=== PATIENT | male | born 1960 | race Caucasian/White ===

== ENCOUNTER 2024-04-25 14:34 | Emergency (ER) | payer OTHER, SELFPAY ==
[2024-04-25 14:40] VITALS: BP 124/74
[2024-04-25 15:06] LABS: Hematocrit 30.9 % (39.0-52.0); Mean Corp Hgb Conc. 35.6 g/dL (33.0-37.0); Mean Corpuscular Hgb 34.7 pg (27.0-31.0); Mean Corpuscular Volume 97.5 fL (80.0-94.0); Mean Platelet Volume 10.4 fL (7.4-10.4); Platelet Count 88 10^3/uL (130-400); Red Blood Cell Count 3.17 10^6/uL (4.70-6.10); Red Cell Dist. Width 13.6 % (11.5-14.5); White Blood Cell Count 16.9 10^3/uL (4.8-10.8)
[2024-04-25 15:15] LABS: Lymphocytes 36 % (20-51); Monocytes 14 % (2-9); Myelocytes 2 % (-); Segmented Neutrophils 48 % (42-75)
[2024-04-25 15:16] LABS: Metamyelocytes 4 % (-); Normal RBC Morphology Yes; Platelets Checked Yes; Total Cells Counted 100
[2024-04-25 15:23] LABS: ALT (SGPT) 16 U/L (0-50); AST (SGOT) 27 U/L (17-59); Albumin 4.2 g/dl (3.5-5.0); Alkaline Phosphatase 74 U/L (38-126); Blood Urea Nitrogen 19 mg/dl (9-20); Calcium 9.8 mg/dl (8.4-10.2); Carbon Dioxide 25 mmol/L (22-30); Chloride 105 mmol/L (98-107); Glucose 94 mg/dl (70-99); Potassium 3.5 mmol/L (3.5-5.1); Sodium 139 mmol/L (135-145); Total Bilirubin 0.3 mg/dl (0.2-1.3); Total Protein 7.1 g/dl (6.3-8.2); eGFR 56.83
[2024-04-25 15:27] LABS: Troponin I < 0.012 ng/ml
--- NOTE | 2024-04-25 16:32 | ED.GENMED ---
Addendum entered and electronically signed by Govind Pool PA-C 04/28/24 07:02:
Urine culture shows greater than 100,000 colony-forming units of E. coli. This was pansensitive on sensitivities. Patient was started on amoxicillin and Zithromax for pneumonia as well. No change necessary
Original Note:
History of Present Illness
General
Chief Complaint: Back Pain
Time Seen by Provider: 04/25/24 16:32
History of Present Illness
History of Present Illness:
HPI: The patient presents with left flank pain over the last few days. This is associated with pain that worsens with certain position changes. Last night he could barely move his left upper extremity due to the pain. He reports some vague
shortness of breath primarily related to pain with movement as opposed to true dyspnea with exertion. He seemed like his symptoms worsened after he was pulling his dog yesterday that was scared from the fireworks
EXAM:
GENERAL: Well appearing in very mild distress
HEENT: Moist oral mucosa
CARDIOVASCULAR: No murmurs, normal heart rate, regular rhythm, No chest wall tenderness
PULMONARY: No respiratory distress, breath sounds are clear and equal
ABDOMEN: Soft with no peritoneal signs, no tenderness, minimal if any left CVA tenderness
NEUROLOGIC: Excellent strength all extremities, no coordination deficits
PSYCHIATRIC: Appropriate mental status, normal insight and judgement
EXTREMITIES: Nontender, no edema, moves all extremities equally
SKIN: No rash, no lesions
TIME OF INITIAL ENCOUNTER: 4:45 PM
NUMBER AND COMPLEXITY OF PROBLEMS ADDRESSED AT THE ENCOUNTER
� Chronic conditions affecting care: Has had left upper extremity surgery in the past
� Acute Exacerbation and/or Progression of Chronic Illness: This is an acute problem
� Differential Diagnosis includes: Musculoskeletal flank pain, ureteral stone, pyelonephritis, UTI
AMOUNT AND/OR COMPLEXITY OF DATA TO BE REVIEWED AND ANALYZED
� I performed an independent evaluation of and my interpretation is:
EKG: Sinus 79, normal axis, nonspecific ST abnormality
CT: Small left pleural effusion noted on CT
X-rays: Chest x-ray shows no acute abnormality
Laboratory Studies: White count 16.9, hemoglobin 11.0, creatinine 1.4 with GFR 57, troponin less than 0.012,
Other:
� Review of other/old records: I reviewed colonoscopy report which showed internal hemorrhoids and diverticular disease from 2017
� Clinical information was obtained by an independent historian: at bedside
� Prescriptions/Medications Considered but not given:
� Further testing considered but not performed: Considered CT chest however I did personally viewed the CT of the abdomen pelvis and it does appear that a significant portion of the area of concern was seen on the abdomen pelvis
RISK OF COMPLICATIONS AND/OR MORBIDITY OR MORTALITY OF PATIENT MANAGEMENT
� Social determinants of health affecting care: Lives at home
� Discussion with other providers:
� Escalation of care including admission/observation vs risk of discharge considered: Leukocytosis is noted. Will add urinalysis. Given the location of the pain will also see of the abdomen pelvis. CT of the abdomen pelvis
shows small pleural effusion along with small consolidation. He does have associated cough�will start treatment for pneumonia. Although patient is a smoker and is 63 years old with leukocytosis, he is very well-appearing and primarily is more
concerned of the pain. His sats are relatively unremarkable on room air. Encouraged to return here if worse.
Phy Exam
Physical Exam
Physical Exam:
See HPI
Course
Orders/Labs/Results
Orders:
Orders
04/25/24 14:35
EKG [Electrocardiogram (*1)] Urgent
Reason for Study: Chest Pain
EKG- Treatment ONCE
04/25/24 14:46
CXR2 [CR Chest - 2 Views ] Urgent
Comment:
Reason For Exam: SOB
04/25/24 14:52
Complete Blood Count/With Diff Urgent
Comprehensive Metabolic Panel Urgent
Manual Differential Urgent
Troponin I Urgent
04/25/24 16:50
CT Abd/pel Without Iv Or Oral Urgent
Comment:
Reason For Exam: L flank pain
04/25/24 17:23
Acetaminophen [Tylenol] 1,000 mg .ROUTE .STK-MED ONE
04/25/24 17:52
Acetaminophen [Tylenol] 1,000 mg PO NOW STA
04/25/24 18:42
Urinalysis Reflex To Culture Urgent
Date Specimen was Collected: 04/25/24
Time Specimen was Collected: 18:41
Urine Microscopic Reflex Cult Urgent
Urine Culture Urgent
ABBY Source: U
Specimen Description:
Date Specimen was Collected: 04/25/24
Time Specimen was Collected: 18:41
04/25/24 19:54
Amoxicillin [Amoxil] 1,000 mg PO NOW STA
Azithromycin [Zithromax] 500 mg PO NOW STA
Abnormal Lab Results
04/25/24 04/25/24
14:52 18:42
WBC 16.9 H 10^3/uL
(4.8-10.8)
RBC 3.17 L 10^6/uL
(4.70-6.10)
Hgb 11.0 L g/dL
(13.0-18.0)
Hct 30.9 L %
(39.0-52.0)
MCV 97.5 H fL
(80.0-94.0)
MCH 34.7 H pg
(27.0-31.0)
Plt Count 88 L 10^3/uL
(130-400)
Monocytes (Manual) 14 H %
(2-9)
Creatinine 1.4 H mg/dL
(0.7-1.3)
Ur Occult Blood Reflex Trace A
(Negative)
Urine Bilirubin 1+ A
(Negative)
Leukocyte Esterase Rfl 1+ A
(Negative)
Urine Bacteria (Reflex) Few A
(Negative)
04/25/24 14:52
04/25/24 14:52
Vital Signs
Initial and Last Documented VS:
Initial Vital Signs
Temp Pulse Resp BP Pulse Ox
98 F 82 16 124/74 96
04/25/24 14:40 04/25/24 14:40 04/25/24 14:40 04/25/24 14:40 04/25/24 14:40
Last Documented Vital Signs
Temp Pulse Resp BP Pulse Ox
98 F 84 18 133/70 95
04/25/24 14:40 04/25/24 18:43 04/25/24 18:43 04/25/24 18:43 04/25/24 18:43
*Critical Care Note
Total Time (30-74mins, 75-104mins- exclusive of procedures): Not Applicable
ED Attending Note
-
Portions of this chart may have been created with voice recognition software.� Occasional wrong word or��sound alike� substitutions may have occurred due to the inherent limitations of voice recognition software.
Discharge Plan
Departure
Patient Disposition: Home (Routine Discharge)
Date of Disposition: 04/25/24
Time of Disposition: 19:47
Patient with high blood pressure during this ER visit?: Yes
Discharge Problem:
Pneumonia
Prescriptions:
New
tramadol 50 mg tablet
50 mg PO Q8H PRN (Reason: Pain) Qty: 14 0RF
amoxicillin 500 mg capsule
1,000 mg PO TID 7 Days Qty: 42 0RF
azithromycin [Zithromax] 250 mg tablet
250 mg PO DAILY Qty: 4 0RF
Referrals:
Marcus Lim MD [Active] - Follow up in 1 week
Shannan Velasquez PA-C [Family Provider] -
Activity Restrictions/Additional Instructions:
Your white blood cell count is elevated 16.9 but your temperature here is normal. Your x-ray did not show signs of pneumonia however the CAT scan of the abdomen pelvis did include the lower portion of the lung and it does show a small pleural
effusion along with sign of pneumonia on the left side. I have placed you on antibiotics. Follow with your primary care doctor. I have also given the contact information for a local county home demonstration agent esophageal to follow-up with if needed.
Interventions
Interventions:
*Risk Screen - Suicide Last Done: 04/25/24 14:40
*General Assessment Last Done: 04/25/24 14:40
*Neglect/Abuse Screening Last Done: 04/25/24 14:40
ED-Musculoskeletal Assessment Last Done: 04/25/24 18:15
Discharge Date and Time
Print Language: ALBANIAN
[2024-04-25 16:54] VITALS: BMI 26.2
[2024-04-25 16:57] VITALS: BP 139/81
[2024-04-25] MEDS: TYLENOL 1000 MG PO (17:52)
[2024-04-25 18:43] VITALS: BP 133/70
[2024-04-25 18:49] LABS: Urine Albumin Trace (Neg - Trace); Urine Bilirubin 1+ (Negative); Urine Character Slightly Cloudy (Clear); Urine Color Yellow; Urine Glucose Negative (Negative); Urine Ketone Negative (Negative); Urine Leukocyte 1+ (Negative); Urine Nitrite Negative (Negative); Urine Occult Blood Trace (Negative); Urine Urobilinogen Negative (Neg - 1+)
[2024-04-25 18:56] LABS: Urine Red Blood Cell 0-2 /HPF (0-2)
[2024-04-25 18:57] LABS: Urine Bacteria Few (Negative)
[2024-04-25] MEDS: AMOXIL 1000 MG PO (20:00)
[2024-04-25] MEDS: ZITHROMAX 500 MG PO (20:01)
== END 2024-04-25 20:03 | disposition home or self-care (01) ==
LOC: EMR 14:34
PROVIDERS: Emergency Medicine; EMERGENCY PHYSICIAN Emergency Medicine; FAMILY PHYSICIAN Physician Assistant Medical
DX: J18.9 Pneumonia, unspecified organism (principal); R03.0 Elevated blood-pressure reading, without diagnosis of hypertension; F17.200 Nicotine dependence, unspecified, uncomplicated
CPT/HCPCS: 99285; 71046; 74176; 80053; 81003; 81015; 84484; 85025; 87077; 87086; 87186; 93005

== ENCOUNTER 2024-04-28 23:36 | Inpatient (IN) | payer OTHER, SELFPAY ==
[2024-04-28 21:40] VITALS: BP 130/70; BMI 25.5
--- NOTE | 2024-04-28 22:05 | ED.GENMED ---
History of Present Illness
General
Chief Complaint: Breathing Problem
Source: patient and spouse
Exam Limitations: none
Time Seen by Provider: 04/28/24 21:56
Nursing documentation reviewed up to this point in time: agreed with
History of Present Illness
History of Present Illness:
Pleasant 63-year-old male who presents to the emergency department with increased breathing difficulty, chest pain, and shortness of breath. Was seen in the emergency department Sunday. Diagnosed with pneumonia. Patient states that after going
home and started his antibiotics he did not seem to improve. Today he felt worse. 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 Patient is a smoker smokes approximate 1 pack/day sometimes more, sometimes
less, according to . Patient was also diagnosed with a UTI. Started on amoxicillin and Zithromax.
Vital signs are stable. Patient not hypoxic
Nursing note reviewed. I agree with nursing documentation up to this point in time.
Home Meds and allergies reviewed.
NUMBER AND COMPLEXITY OF PROBLEMS ADDRESSED AT THE ENCOUNTER
� Chronic conditions affecting care: Tobacco abuse
� Acute Exacerbation and/or Progression of Chronic Illness: Exacerbation of pneumonia symptoms
� Differential Diagnosis includes: Pneumonia, musculoskeletal pain, exacerbation or UTI.
AMOUNT AND/OR COMPLEXITY OF DATA TO BE REVIEWED AND ANALYZED
I performed an independent evaluation of the following and my interpretation is:
EKG:
CT:
X-rays:
Ultrasound:
Laboratory Studies:
Other: Room air pulse ox 90%
Review of other/old records:
Clinical information was obtained by an independent historian:
Prescriptions/Medications Considered but not given:
Further testing considered but not performed:
RISK OF COMPLICATIONS AND/OR MORBIDITY OR MORTALITY OF PATIENT MANAGEMENT
Social determinants of health affecting care: Good Social Support, present at the bedside.
Discussion with other providers:
Escalation of care including admission/observation vs risk of discharge considered: Patient was unable to tolerate outpatient therapy. He bounced back with hypoxia. He is 63, lifelong smoker, and unable to tolerate the back
pain associated with breathing. Patient to be admitted to the hospitalist service.
CRITICAL CARE NOTE:
Total Time (exclusive of procedures):
Update:
Phy Exam
Physical Exam
Physical Exam:
Physical Exam
Vital signs and allergy list reviewed and agreed with.
GENERAL: Alert , in moderate apparent distress on 2 L
EYE: pupils equal, EOMI, anicteric
NECK: Supple, no significant adenopathy. No masses. Trachea midline
ENT: Oropharynx is clear, mmm.
CARDIAC: Regular rate and rhythm . No M/R/G
LUNGS: Diminished breath sounds bilaterally, mild to moderate acute respiratory distress, generalized wheezing
ABDOMEN: Soft, without focal tenderness, no r/g, Normal BSx4q
NEUROLOGICAL: Alert and oriented, no focal neuro deficits
SKIN: Warm and dry, skin intact. As she had
MUSCULOSKELETAL: No edema, well perfused. Moves all 4 extremities
PSYCH: Normal and appropriate interaction.
Scores
Heart Failure Risk
Heart Failure Risk Score: Not Applicable
Course
Orders/Labs/Results
Orders:
Orders
04/28/24 21:44
Electrocardiogram (*1) Urgent
Reason for Study: Shortness of Breath
EKG- Treatment ONCE
04/28/24 22:04
Cardiac Monitoring- Treatment ONCE
Arterial Blood Gas Urgent
%Oxygen/Room Air: 2 l
04/28/24 22:05
CR Chest - 2 Views Urgent
Comment:
Reason For Exam: dyspnea
04/28/24 22:28
Complete Blood Count/With Diff Urgent
Comprehensive Metabolic Panel Urgent
Ferritin Urgent
Comment: ADDED
Folate Urgent
Comment: ADDED
Iron Urgent
Comment: ADDED
Lactic Acid Q4H
Comment: CANCEL 2nd LACTIC ACID IF 1st LACTIC ACID IS LESS THAN 2
Manual Differential Urgent
NT-proBNP Urgent
Procalcitonin Urgent
PCT Algorithmm Indication: Respiratory
Prothrombin Time Urgent
Total Iron Binding Urgent
Comment: ADDED
Troponin I Urgent
Vitamin B12 Urgent
Comment: ADDED
Blood Culture Urgent
ABBY Source: Blood/Venous
Specimen Description:
04/28/24 22:58
Piperacillin/Tazo 4.5 Gram [Zosyn] 4.5 gram in 100 ml IV NOW
04/28/24 23:00
Flush (0.9% Sodium Chloride) [Flush (Nss)] See Dose Instructions IV PER PROTOCOL
04/28/24 23:13
HYDROmorphone [Dilaudid] 0.5 mg IV NOW STA
Ondansetron Injectable [Zofran] 4 mg IV NOW STA
04/28/24 23:19
Admit/Transfer Patient As Directed
Co-Sign Provider:
Level of Care: Inpatient admission
Assign to:: Telemetry
Physician / Group: Essie
Diagnosis: Pneumonia; Hypoxia
Reason for Telemetry: Arrhythmia
Date to Stop Telemetry: 05/01/24
Time to Stop Telemetry: 11:00
Reason for Hospitalization: IV abx
Expected length of stay greater than two midnights?: Yes
ELOS- Estimated Length of Stay in days: 3
I certify the patient meets the requirements for IP care: Yes
04/28/24 23:20
Code Status As Directed
Resuscitation Status: Full Code
04/28/24 23:24
COVID-19 Antigen Urgent
Source: Nasal Swab
Potassium Chloride [KCl] 40 meq PO NOW STA
04/29/24 03:43
Acetaminophen [Tylenol] 650 mg PO Q4HPRN PRN
Ipratropium/Albuterol Sulfate [Duoneb] 3 ml INH R Q4HPRN PRN
Oxycodone [Roxicodone] 5 mg PO Q4HPRN PRN
04/29/24 03:43
Activity As Directed
Activity Level: Out of Bed-Early Mobility
Intake/ Output As Directed
Frequency: Per unit guidelines
Pneumatic Compression Sleeves As Directed
Type: Knee high
Vital Signs As Directed
Frequency: Per unit guidelines
Weight As Directed
Frequency: Once
Comment: on admission
O2 Therapy [RESP] Routine
Titrate/Wean O2 to maintain O2 sat greater than (%): 90
Special Instructions: Wean as tolerated
Pulse Ox/cont/shift [RESP] Routine
Quantity: 1
Smoking Cessation Counseling [RESP] Routine
DX Deep Vein Thrombosis Video Routine
04/29/24 04:00
CefTRIAXone [Rocephin] 1,000 mg IV HS
04/29/24 06:00
Basic Metabolic Panel IN AM
Complete Blood Count/No Diff IN AM
Magnesium IN AM
04/29/24 08:00
Doxycycline [Vibramycin] 100 mg PO BID
Guaifenesin [Mucinex] 600 mg PO Q12
Ipratropium/Albuterol Sulfate [Duoneb] 3 ml INH R QID
Nicotine [Nicoderm Transdermal] 14 mg TRANSDERM DAILY
04/29/24 Dinner
Regular
At Your Request: Limited Participation
05/01/24 11:00
DC Protocol for Telemetry ONCE
Abnormal Lab Results
04/28/24
22:28
WBC 29.1 H 10^3/uL
(4.8-10.8)
RBC 3.17 L 10^6/uL
(4.70-6.10)
Hgb 10.8 L g/dL
(13.0-18.0)
Hct 30.9 L %
(39.0-52.0)
MCV 97.5 H fL
(80.0-94.0)
MCH 34.1 H pg
(27.0-31.0)
Plt Count 84 L 10^3/uL
(130-400)
MPV 11.6 H fL
(7.4-10.4)
Potassium 3.1 L mmol/L
(3.5-5.1)
Creatinine 1.6 H mg/dL
(0.7-1.3)
Glucose 116 H mg/dl
(70-99)
Lactic Acid 0.6 L mmol/L
(0.7-2.0)
TIBC 257 L ug/dl
(261-462)
Ferritin 817.0 H ng/ml
(17.9-464.0)
04/28/24 22:28
04/28/24 22:28
Vital Signs
Initial and Last Documented VS:
Initial Vital Signs
Temp Pulse Resp BP Pulse Ox
98 F 78 26 130/70 92
04/28/24 21:40 04/28/24 21:40 04/28/24 21:40 04/28/24 21:40 04/28/24 21:40
Last Documented Vital Signs
Temp Pulse Resp BP Pulse Ox
98.2 F 66 13 116/65 92
04/29/24 02:35 04/29/24 05:15 04/29/24 05:15 04/29/24 05:00 04/29/24 05:15
*Critical Care Note
Total Time (30-74mins, 75-104mins- exclusive of procedures): Not Applicable
ED Attending Note
-
Portions of this chart may have been created with voice recognition software.� Occasional wrong word or��sound alike� substitutions may have occurred due to the inherent limitations of voice recognition software.
Discharge Plan
Departure
Patient Disposition: Admit
Date of Disposition: 04/28/24
Time of Disposition: 23:14
Admit to: Telemetry
Presentation/result/management discussed w/ accepting MD/DO: Hospitalist
Condition: Good
Discharge Problem:
Pneumonia
Interventions
Interventions:
*Risk Screen - Suicide Last Done: 04/28/24 21:40
*Neglect/Abuse Screening Last Done: 04/28/24 21:40
ED- Fall Risk Assessment Last Done: 04/29/24 00:57
ED- Cardiac Assessment Last Done: 04/29/24 00:57
ED- Pulmonary Assessment Last Done: 04/29/24 00:57
[2024-04-28 22:43] LABS: Hematocrit 30.9 % (39.0-52.0); Hemoglobin 10.8 g/dL (13.0-18.0); Mean Corpuscular Hgb 34.1 pg (27.0-31.0); Mean Corpuscular Volume 97.5 fL (80.0-94.0); Mean Platelet Volume 11.6 fL (7.4-10.4); Platelet Count 84 10^3/uL (130-400); Red Blood Cell Count 3.17 10^6/uL (4.70-6.10); Red Cell Dist. Width 13.9 % (11.5-14.5); White Blood Cell Count 29.1 10^3/uL (4.8-10.8)
[2024-04-28 22:53] LABS: Lactic Acid 0.6 mmol/L (0.7-2.0)
[2024-04-28 22:56] LABS: ALT (SGPT) 27 U/L (0-50); AST (SGOT) 40 U/L (17-59); Albumin 4.1 g/dl (3.5-5.0); Alkaline Phosphatase 120 U/L (38-126); Blood Urea Nitrogen 20 mg/dl (9-20); Carbon Dioxide 27 mmol/L (22-30); Chloride 101 mmol/L (98-107); Glucose 116 mg/dl (70-99); INR 1.12; PT 14.2 Sec (11.4-14.6); Potassium 3.1 mmol/L (3.5-5.1); Sodium 135 mmol/L (135-145); Total Bilirubin 0.5 mg/dl (0.2-1.3); Total Protein 7.1 g/dl (6.3-8.2); eGFR 48.41
[2024-04-28 23:05] LABS: NT-proBNP 326 pg/ml; Troponin I < 0.012 ng/ml
[2024-04-28 23:11] LABS: Procalcitonin < 0.05 ng/ml (0.0-0.25)
[2024-04-28] MEDS: ZOFRAN 4 MG IV (23:18)
[2024-04-28] MEDS: DILAUDID 0.5 MG IV (23:18)
[2024-04-28] MEDS: ZOSYN 100 IV (23:18)
[2024-04-28 23:22] VITALS: BMI 25.5
--- NOTE | 2024-04-28 23:26 | HPS.HSE ---
Family Physician
-
Family Physician: Shannan Velasquez
Chief Complaint
-
Chest Pain and Shortness of Breath
History of Present Illness
Patient is a 63 y/o male without significant past medical history who presents with chest pain and shortness of breath. Patient was seen here at the [facility] Emergency Department on April 25 at which time he was found to have pneumonia.
He was started on amoxicillin and zithromax, and discharged home. Patient presents today due to worsening pain and shortness of breath. He reports pain is worse when he takes a deep breath causing him to feel short of breath. He reports several
episodes of sweats over the weekend, but denies recorded fevers. He denies any chronic lung condition, but does smoke 1 pack of cigarettes per day. He reports he has not seen a physician in about 10 years.
Medical History
Past Medical History
Past Medical History: Reports None
Past Surgical History: Reports Other
Additional Past Surgical History:
Left Wrist Surgery
Social History
Tobacco: Smoker (1 ppd)
Alcohol: None
Family History
Family History: Not pertinent
Allergies / Home Medications
Allergies reflects when Allergies were last updated in [facility].
Home Medications with original date entered in [facility]
Allergy/Medication List:
Allergies
Allergy/AdvReac Type Severity Reaction Status Date / Time
oxycodone HCl [From Percodan] Allergy nausea, Verified 04/25/24 14:40
vomitung
Home Medications
amoxicillin 500 mg capsule 1,000 mg (2 x 500 mg) PO TID 7 days #42 caps 04/25/24
azithromycin 250 mg tablet (Zithromax) 250 mg PO DAILY #4 tabs 04/25/24
tramadol 50 mg tablet 50 mg PO Q8H PRN moderate pain 04/28/24
Review of Systems
-
A 12 point ROS was completed and negative except as noted: Yes
Constitutional: Denies Fever
Respiratory: Reports See HPI
Cardiac: Denies Palpitations
Abdomen/GI: Reports Nausea; Denies Abdominal Pain
Physical Exam
Vital Signs
Vital Signs
Temp Pulse Resp BP Pulse Ox
98 F 78 26 130/70 92
04/28/24 21:40 04/28/24 21:40 04/28/24 21:40 04/28/24 21:40 04/28/24 21:40
Physical Exam
General: Comfortable and Conversant
HEENT: Anicteric, Moist mucous membranes and Oxygen (Nasal Cannula)
Respiratory: Rhonchi (Bilateral Lower Lung Goel) and Non Labored Respirations
Cardiac: S1/S2 and Regular Rhythm
GI: Soft and Non Tender
Rectal: Deferred by Provider
Musculoskeletal: No Clubbing, No Cyanosis and No Edema
Skin: Warm and Dry
Neuro: Awake, Alert, Oriented and Nonfocal/grossly intact
Psych: Calm
Laboratory Results
-
04/28/24 22:28
04/28/24 22:28
Laboratory Results
PT 14.2 Sec (11.4-14.6) 04/28/24 22:28
INR 1.12 04/28/24 22:28
Lactic Acid 0.6 mmol/L (0.7-2.0) L 04/28/24 22:28
Total Bilirubin 0.5 mg/dl (0.2-1.3) 04/28/24 22:28
AST 40 U/L (17-59) 04/28/24 22:28
ALT 27 U/L (0-50) 04/28/24 22:28
Alkaline Phosphatase 120 U/L (38-126) 04/28/24 22:28
Troponin I < 0.012 ng/ml 04/28/24 22:28
Data Reviewed
-
Diagnostic Radiology: Other (Chest X-Ray Pending)
CT Scan: Report Reviewed by me
Lab Data: Labs Reviewed by me
Old Records: Reviewed
Impression/Plan
-
Acute Hypoxic Respiratory Insufficiency secondary to Pneumonia and possibly underlying COPD
-Continue supplemental oxygen
-Transition antibiotics to ceftriaxone and doxycycline
-Start Duoneb QID and PRN
-Check COVID and Blood Culture
-Await CXR
Hypokalemia
-Replace potassium
-Recheck potassium and magnesium level in AM
Elevated Creatinine, unknown baseline
-Continue to trend
Macrocytic Anemia
-Check vitamin b12 and folic acid level
Tobacco Use Disorder
-Continue nicotine patch
-Encourage smoking cessation
DVT proph: SCDs (Platelet count low on prior labs, and still pending at time of admission)
Code Status: Full Code
--- NOTE | 2024-04-28 23:26 | W.PN.UPDATE ---
Update Note
Progress Note Update
This is an addendum to the H&P written by WILL Arellano on 04/28/2024.
Patient seen and examined independently with PA.
63-year-old male past medical history of presenting with shortness of breath, chest pain. He was seen in the emergency room 3 days prior and diagnosed with pneumonia on CT abdomen pelvis as well as E. coli UTI although no urinary symptoms. He was
discharged on amoxicillin/Zithromax. He continues to have worsening left flank pain, chills, and cough.
Pleuritic chest pain secondary to left lower lobe pneumonia. Chest x-ray pending. Unclear why ABG being performed. Labs show elevated creatinine unclear if JULIO versus CKD. IV fluids, check blood culture. Check COVID. Ceftriaxone/doxycycline.
DuoNebs as needed.
[2024-04-28 23:28] VITALS: BP 123/64
[2024-04-29] VITALS (11 sets, daily range): BP systolic 106–139; BP diastolic 59–71; BMI 25.0
[2024-04-29 00:06] LABS: Pathologist Reviewed Yes
[2024-04-29] MEDS: KCL 40 MEQ PO (00:07)
[2024-04-29 00:14] LABS: B.E. 0.3 mmol/L; HCO3 25.4 mmol/L (21-28); O2 Saturation % 94.8 % (94-98); PCO2 42 mmHg (35-48); PO2 68 mmHg (83-108); pH 7.39 (7.35-7.45)
[2024-04-29 00:15] LABS: O2 Therapy 2L NC
[2024-04-29 00:36] LABS: COVID-19 Antigen Negative (Negative)
[2024-04-29 00:43] LABS: Iron 90 ug/dl (49-181)
[2024-04-29 00:52] LABS: Percent Saturation 35 % (20-50); Total Iron Binding Capacity 257 ug/dl (261-462)
[2024-04-29] MEDS: STERILE WATER FOR INJECTION 10 ML IV ×2 (04:24→21:00)
[2024-04-29] MEDS: ROCEPHIN 1000 MG IV ×2 (04:25→21:00)
[2024-04-29 05:01] LABS: Folate 7.4 ng/ml (2.76-20); Vitamin B12 288 pg/ml (239-931)
[2024-04-29 06:04] LABS: Hematocrit 29.9 % (39.0-52.0); Hemoglobin 10.3 g/dL (13.0-18.0); Mean Corp Hgb Conc. 34.4 g/dL (33.0-37.0); Mean Corpuscular Hgb 35.2 pg (27.0-31.0); Platelet Count 72 10^3/uL (130-400); Red Blood Cell Count 2.93 10^6/uL (4.70-6.10); Red Cell Dist. Width 13.9 % (11.5-14.5); White Blood Cell Count 23.4 10^3/uL (4.8-10.8)
[2024-04-29 06:22] LABS: Blood Urea Nitrogen 19 mg/dl (9-20); Calcium 8.6 mg/dl (8.4-10.2); Carbon Dioxide 28 mmol/L (22-30); Chloride 103 mmol/L (98-107); Estimated Creatinine Clearance 49 ml/min; Glucose 125 mg/dl (70-99); Potassium 3.6 mmol/L (3.5-5.1); Sodium 137 mmol/L (135-145); eGFR 52.31
[2024-04-29] MEDS: DUONEB 3 ML INH ×4 (08:34→20:11)
[2024-04-29] MEDS: NICODERM TRANSDERMAL 14 MG TRANSDERM (09:26)
[2024-04-29] MEDS: MUCINEX 600 MG PO ×2 (09:26→20:59)
[2024-04-29] MEDS: VIBRAMYCIN 100 MG PO ×2 (09:26→20:59)
[2024-04-29] MEDS: ROXICODONE 5 MG PO ×2 (09:31→13:32)
[2024-04-29] MEDS: ZOFRAN 4 MG IV ×2 (10:14→16:41)
--- NOTE | 2024-04-29 11:35 | W.PN.HOSP.TC ---
Today's Communication/Plan
-
See plan
Assessment / Plan
Assessment / Plan
Impression:
Presentation with mostly left-sided pleuritic/reproducible chest pain/back pain
Acute hypoxic respiratory insufficiency
Bilateral interstitial infiltrates with differential diagnosis community-acquired/atypical pneumonia, versus pneumonitis, versus vasculitis.
Leukocytosis
Thrombocytopenia.
? Acute anemia with macrocytosis
Acute kidney injury
Hypokalemia.
E. coli bacteriuria
Tobacco smoker
Plan:
Acute hypoxic respiratory insufficiency requiring oxygen supplementation up to 4 L nasal cannula
No evidence for distress.
Main complaint of reproducible chest and back pain. Minimal cough and expectoration. Afebrile.
Bilateral interstitial infiltrates on chest x-ray.
Differential diagnosis as above.
Elevated white count with negative procalcitonin level.
COVID-negative
He reports symptoms for over a week with worsening on April 24
On outpatient antibiotics including amoxicillin and Zithromax without significant improvement.
Continue ceftriaxone/doxycycline. Status post single dose of Zosyn while in ED.
Follow blood cultures
Check urine Legionella antigen.
Vasculitis serology.
Lower extremity Doppler
Consider CT scan of the chest preferably with IV contrast when renal function allows
Pulmonology evaluation
Continue oxygen supplementation
Follow CBC
Pleuritic pain control with Tylenol/oxycodone
Chest pain is positional and reproducible on exam.
Normal cardiac markers including BNP and troponin
ECG with no ischemia.
Given interstitial infiltrates, will check echocardiogram.
Acute kidney injury
Check urine sodium.
Bladder scan.
Repeat urinalysis.
Challenged with isotonic solution.
Avoid NSAIDs
Follow BMP
Hypokalemia. Potassium repleted.
Anemia with macrocytosis
? If acute
Will follow CBC
Check B12 and TSH
Thrombocytopenia? If related to acute illness.
Follow closely
Tobacco use disorder
Nicotine patch
Bacteriuria/E. coli per
Patient initially presented with back/flank pain.
Currently with no urinary symptoms.
CT scan of the abdomen pelvis with no urologic tract abnormalities.
DVT prophylaxis mechanical (thrombocytopenia avoiding heparin products)
Full code.
Anticipated Discharge: > 48 hours
Subjective/Interval History
-
Date of Service: April 29, 2024
Objective Data
-
Labs:
Laboratory Results
04/28/24 04/29/24 04/29/24
22:28 00:05 05:45
WBC 23.4 H
Hgb 10.3 L
Hct 29.9 L
Plt Count 84 L 72 L
HCO3 25.4
Sodium 137
Potassium 3.6
Chloride 103
Carbon Dioxide 28
BUN 19
Creatinine 1.5 H
Glucose 125 H
Calcium 8.6
Vital Signs:
Vital Signs
Temp Pulse Resp BP Pulse Ox
98.3 F 71 16 114/60 95
04/29/24 11:10 04/29/24 11:26 04/29/24 11:26 04/29/24 11:10 04/29/24 11:26
Physical Exam
-
General: Well Developed and No Apparent Distress
HEENT: Normocephalic, Atraumatic and Moist Mucous Membranes
Respiratory: Clear to Auscultation
Cardiac: Regular Rhythm and S1/S2; Negative Murmur, Rub or Gallop
GI: Soft, Nontender, Nondistended and Normal Bowel Sounds; Negative Organomegaly
Rectal: Deferred by Provider
Musculoskeletal: No Clubbing, No Cyanosis and No Edema
Skin: Negative Rash
Neuro: Nonfocal/Grossly Intact
--- NOTE | 2024-04-29 11:48 | CON.PUL ---
Consultation
Consultation Request
Date/Time Consultation Requested: 04/29/20241137
Date/Time Consultation Performed: 04/29/2024 - 1147
Requesting Provider: Dr. Nichols
Performing Provider: Dr. Ma
Reason for Consultation: Hypoxia
Medical History
-
Chief Complaint: CP + SOB
History of Present Illness:
63-year-old male active tobacco smoker of 1 PPD with a past medical history of hyperlipidemia and internal hemorrhoids who presents with chest pain, ultimately status, and vomiting. Patient recently here in the ER on 04/25 with left-sided flank pain
where he had leukocytosis of 16.9, elevated creatinine of 1.4, with clear CXR and abnormal urinalysis with +1 leukocyte esterase. Urine culture collected and CT A/P showed a left-sided pleural effusion with LLL consolidation, with no CT evidence
for hydronephrosis or nephro ureterolithiasis. The patient did have a SOB at that time with a cough as well. He was diagnosed with pneumonia and discharged with amoxicillin X 7 days + Z-Rajinder. Of note his UCx grew kennedy-sensitive E. coli 2 days
later. He now returns again with worsening SOB + CP. He had been taking his antibiotics and was initially improving. He then was unable to do his job and so came to the ER where he was saturating 92% on room air, BP 130/70, tachypneic initially
to 26 breaths/min, pulse rate 78 and he was afebrile to 98 �F. Leukocytosis has worsened now to 29, platelet count 84, he was hypokalemic to 3.1, creatinine 1.6, lactate 0.6, troponin negative X1, proBNP 326, procalcitonin <0.05, and blood culture
X1 was collected, and CXR was repeated with low lung volumes with small bilateral pleural effusions with diffusely increased interstitial opacities. He was given Zosyn in the ER plus pain medications with Dilaudid, and admitted to the hospitalist
service. He is now requiring up to 4 L/min nasal cannula. Pulmonary service now consulted given abnormal CXR as well as hypoxia.
When I saw the patient he was in bed in no acute distress. Currently on 4 L/min nasal cannula. He endorses right-sided chest pain that started today. Patient's , Kay, at bedside. He feels that the chest pain is worse when he takes of
breath. 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 He currently denies SOB at rest, headache, abdominal pain, lower extremity swelling, calf pain, fevers or chills.
PMHx: History of internal hemorrhoids, tobacco use disorder, mixed hyperlipidemia
PSHx: Left wrist tendon repair, right ring finger repair, vasectomy s/p reversal
Past Medical History
Past Medical History: Other (Above as per HPI)
Past Surgical History: Other (Above as per HPI)
Social History
Tobacco: Smoker (1PPD)
Alcohol: Occasional
Drug: None
Employment: Employed
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
Family History
Family History: CAD (Father: History of MS) and Cancer (Mother: Breast cancer; paternal grandmother + paternal aunt: Colon cancer)
Allergies / Home Medications
Allergies
Allergy/AdvReac Type Severity Reaction Status Date / Time
oxycodone HCl [From Percodan] Allergy nausea, Verified 04/25/24 14:40
vomitung
Home Medications
�Medication �Instructions �Recorded �Confirmed �Last Taken �Type
tramadol 50 mg tablet 50 mg PO Q8H PRN moderate pain 04/28/24 04/28/24 04/28/24 17:00 History
amoxicillin 500 mg capsule 1,000 mg PO TID Infection 04/29/24 04/28/24 04/28/24 History
azithromycin 250 mg tablet 250 mg PO DAILY Infection 04/29/24 04/28/24 04/28/24 History
(Zithromax)
Review of Systems
-
History Source: Patient
All other systems: Negative unless noted
Vitals / Labs / Diagnostic Testing
Vital Signs
Temp Pulse Resp BP Pulse Ox
98.3 F 71 16 114/60 95
04/29/24 11:10 04/29/24 11:26 04/29/24 11:26 04/29/24 11:10 04/29/24 11:26
Lab Data
04/29/24 05:45
04/29/24 05:45
Laboratory Results
04/28/24 04/29/24
22:28 00:05
PT 14.2
INR 1.12
pH 7.39
pCO2 42
pO2 68 L
HCO3 25.4
O2 Delivery Level 2l nc
Diagnostic Testing:
Physical Exam
-
HEENT: Normocephalic and Anicteric
Cardiovascular: S1/S2 and Peripheral Edema (Negative)
Respiratory: Wheeze (Negative), Rales (left base), Rhonchi (Negative), Non-Labored Respirations and Other (Diminished breath sounds at left base)
GI: Soft, Non Distended, Non Tender and Normal Bowel Sounds
Neurology: Awake, Alert and Tremors (Negative)
Skin: Warm and Dry
General: Comfortable and Fever (Negative)
Assessment
-
Assessment: 63-year-old male active tobacco smoker of 1 PPD with a past medical history of hyperlipidemia and internal hemorrhoids who presents with chest pain, ultimately status, and vomiting. Patient recently here in the ER on 04/25 with
left-sided flank pain where he had leukocytosis of 16.9, elevated creatinine of 1.4, with clear CXR and abnormal urinalysis with +1 leukocyte esterase. Urine culture collected and CT A/P showed a left-sided pleural effusion with LLL consolidation,
with no CT evidence for hydronephrosis or nephro ureterolithiasis. The patient did have a SOB at that time with a cough as well. He was diagnosed with pneumonia and discharged with amoxicillin X 7 days + Z-Rajinder. Of note his UCx grew kennedy-sensitive
E. coli 2 days later. He now returns again with worsening SOB + CP. He had been taking his antibiotics and was initially improving. He then was unable to do his job and so came to the ER where he was saturating 92% on room air, BP 130/70,
tachypneic initially to 26 breaths/min, pulse rate 78 and he was afebrile to 98 �F. Leukocytosis has worsened now to 29, platelet count 84, he was hypokalemic to 3.1, creatinine 1.6, lactate 0.6, troponin negative X1, proBNP 326, procalcitonin
<0.05, and blood culture X1 was collected, and CXR was repeated with low lung volumes with small bilateral pleural effusions with diffusely increased interstitial opacities. He was given Zosyn in the ER plus pain medications with Dilaudid, and
admitted to the hospitalist service. He is now requiring up to 4 L/min nasal cannula. Pulmonary service now consulted given abnormal CXR as well as hypoxia.
Chronic conditions [employer]: History of internal hemorrhoids, tobacco use disorder, mixed hyperlipidemia
Impression:
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
#Left-sided pleural effusion with adjacent air bronchograms concerning for LLL CAP with parapneumonic effusion; unable to rule out empyema vs complicated parapneumonic effusion
#Abnormal CXR on 04/28/2024 with coarsened bronchovascular markings
#Tobacco use disorder
#Thrombocytopenia - unknown baseline but in the setting of leukocytosis, this could be due to active infection with sepsis
#Positive urinalysis with kennedy�sensitive E. coli seen on UCX from 04/25/2024 - suspicious for UTI although patient is asymptomatic
Plan:
- Regarding the interstitial markings from CXR on 04/28/2024, this is likely due to hypoventilation and not due to any pre-existing ILD. This is based on the fact that he had a normal CXR just 3 days prior, with no evidence of reticular opacities,
honeycombing or any other signs of ILD in the bases of the lungs on CT A/P from 04/25/2024
- I do not feel this patient needs a CTD workup at this time however given it was already drawn this will be followed up
- Leukocytosis up to 29.1 worries me, and a negative procalcitonin does not rule out a contained infection like a complicated parapneumonic effusion versus empyema
- Check Left chest US to assess pleural space; if there are septations then this collection would need a chest tube. If pleural space is large enough for thoracentesis then I would at least recommend a diagnostic Thora and sent for fluid glucose,
LDH, protein, albumin, cell count differential, bacterial cultures, fungus culture, AFB and cytology
- If effusion is small then continue antibiotics and we can always recheck CXR versus chest ultrasound in 48 hours to reassess persistence versus enlargement of left-sided pleural effusion
- Continue with antibiotics with ceftriaxone + Doxy; would not stop antibiotics until we adequately evaluate left-sided pleural space; otherwise would give a minimum of 7-10 days at this time
- Follow-up blood cultures, check sputum culture (if patient can produce a decent sample)
- Maintain SpO2 >90-94% with supplemental O2 as needed
- Incentive spirometer encouraged
- prn nebulized bronchodilators and continue DuoNebs QID
- Given his risk factor for DVT/PE, I will check a lower extremity duplex; unfortunately due to patient's elevated creatinine with suspected JULIO, hold off on CTA chest unless patient's oxygen requirements worsen or if patient's chest pain progresses
- Continue with IVF and trend sCr and UOP
- pain control
- Mucolytics with mucinex; can also use flutter valve
- Strongly encouraged nicotine cessation
- Continue nicotine patch
- Recommend outpatient PFTs
- He qualifies for lung cancer screening via LDCT chest which can be discussed with him as an outpatient
- Replete electrolytes with K>4, Mg>2
- Maintain euglycemia with goal BG >100 and <180
- DVT ppx
Pulmonary service will continue to follow along.
Total time spent today was 55 minutes for this encounter. Time includes reviewing laboratory test/imaging results, reviewing pertinent medical records, obtaining and reviewing medical history, performing an appropriate exam, ordering medications,
tests and procedures. Time also includes documentation of this encounter, coordinating patient care and communicating with other healthcare professionals. Total time does not include separately billed tests performed on this date of service.
Data:
CXR 04-28-2024: Diffuse increased interstitial opacity probably related to interstitial edema. Bilateral very small pleural effusions with adjacent atelectatic changes
CT Abd/Pelvis w/o contrast 04-25-2024:
1. Small left pleural effusion with an adjacent left lower lobe opacity that may represent atelectasis or pneumonia.
2. Cholelithiasis.
3. Colonic diverticulosis.
4. Mild splenomegaly.
5. No CT evidence for hydronephrosis or nephroureterolithiasis.
[2024-04-29] MEDS: NSS 1000 IV ×2 (12:57→21:01)
--- NOTE | 2024-04-29 13:16 | CM ---
Patient seen bedside, initial assessment completed. Patient resides with his in a two story home, three steps to enter. Patient denies DME, VN, or SNF history. Patient currently on O2, is not on home O2. Patient confirms PCP Dr. Velasquez,
pharmacy [facility], confirms prescription coverage. Patient denies food, housing/utility, and transportation insecurities. CM will continue to follow for all discharge planning needs.
Plan; home no needs, watch for home O2 needs.
[2024-04-29 16:25] LABS: Urine Albumin Trace (Neg - Trace); Urine Bilirubin Negative (Negative); Urine Character Clear (Clear); Urine Color Yellow; Urine Glucose Negative (Negative); Urine Ketone Negative (Negative); Urine Leukocyte Trace (Negative); Urine Nitrite Negative (Negative); Urine Occult Blood Trace (Negative); Urine Urobilinogen Negative (Neg - 1+)
[2024-04-29 16:33] LABS: Urine Squamous Cell 0-2 /LPF (Few)
[2024-04-29 16:34] LABS: Urine Bacteria Many (Negative); Urine Red Blood Cell 0-2 /HPF (0-2)
[2024-04-29] MEDS: DILAUDID 0.5 MG IV (16:36)
[2024-04-29 17:15] LABS: Urine Sodium 30 mmol/L (30-90)
[2024-04-30 03:55] VITALS: BP 140/69
[2024-04-30] MEDS: ZOFRAN 4 MG IV ×3 (06:05→16:18)
[2024-04-30] MEDS: DILAUDID 0.5 MG IV ×3 (06:05→16:17)
[2024-04-30] MEDS: NSS 1000 IV ×2 (06:06→15:34)
[2024-04-30 07:35] VITALS: BP 135/68
[2024-04-30 07:56] LABS: Hemoglobin 10.1 g/dL (13.0-18.0); Mean Corp Hgb Conc. 34.8 g/dL (33.0-37.0); Mean Corpuscular Hgb 35.3 pg (27.0-31.0); Mean Corpuscular Volume 101.4 fL (80.0-94.0); Mean Platelet Volume 11.6 fL (7.4-10.4); Platelet Count 73 10^3/uL (130-400); Red Blood Cell Count 2.86 10^6/uL (4.70-6.10); Red Cell Dist. Width 14.1 % (11.5-14.5); White Blood Cell Count 31.2 10^3/uL (4.8-10.8)
[2024-04-30] MEDS: DUONEB 3 ML INH ×3 (08:16→15:30)
[2024-04-30] MEDS: NICODERM TRANSDERMAL 14 MG TRANSDERM (09:16)
[2024-04-30] MEDS: MUCINEX 600 MG PO (09:17)
[2024-04-30] MEDS: VIBRAMYCIN 100 MG PO (09:17)
[2024-04-30] MEDS: ROXICODONE 5 MG PO (09:21)
[2024-04-30 09:43] LABS: Blood Urea Nitrogen 18 mg/dl (9-20); Carbon Dioxide 22 mmol/L (22-30); Chloride 104 mmol/L (98-107); Estimated Creatinine Clearance 57 ml/min; Glucose 107 mg/dl (70-99); Potassium 3.3 mmol/L (3.5-5.1); Sodium 137 mmol/L (135-145); eGFR > 60.00
[2024-04-30 10:11] LABS: Metamyelocytes 5 % (-); Normal RBC Morphology No; Nucleated Red Blood Cells 1 (-); Platelets Checked Yes
[2024-04-30 10:12] LABS: Anisocytosis Slight; Hypochromasia Slight; Polychromasia 1+; Total Cells Counted 100
--- NOTE | 2024-04-30 10:15 | W.PN.PUL3 ---
Today's Communication / Plan
-
Patient being arranged to transfer to [facility] given concern for blast crisis (suspected AML)
If patient does not leave tonight, recheck CXR in the morning
Continue antibiotics
Pain control
Outpatient follow up with PFTs and discussion of LDCT chest for lung cancer screening
Assessment
-
Assessment: 63-year-old male active tobacco smoker of 1 PPD with a past medical history of hyperlipidemia and internal hemorrhoids who presents with chest pain, ultimately status, and vomiting. Patient recently here in the ER on 04/25 with
left-sided flank pain where he had leukocytosis of 16.9, elevated creatinine of 1.4, with clear CXR and abnormal urinalysis with +1 leukocyte esterase. Urine culture collected and CT A/P showed a left-sided pleural effusion with LLL consolidation,
with no CT evidence for hydronephrosis or nephro ureterolithiasis. The patient did have a SOB at that time with a cough as well. He was diagnosed with pneumonia and discharged with amoxicillin X 7 days + Z-Rajinder. Of note his UCx grew kennedy-sensitive
E. coli 2 days later. He now returns again with worsening SOB + CP. He had been taking his antibiotics and was initially improving. He then was unable to do his job and so came to the ER where he was saturating 92% on room air, BP 130/70,
tachypneic initially to 26 breaths/min, pulse rate 78 and he was afebrile to 98 �F. Leukocytosis has worsened now to 29, platelet count 84, he was hypokalemic to 3.1, creatinine 1.6, lactate 0.6, troponin negative X1, proBNP 326, procalcitonin
<0.05, and blood culture X1 was collected, and CXR was repeated with low lung volumes with small bilateral pleural effusions with diffusely increased interstitial opacities. He was given Zosyn in the ER plus pain medications with Dilaudid, and
admitted to the hospitalist service. He is now requiring up to 4 L/min nasal cannula. Pulmonary service now consulted given abnormal CXR as well as hypoxia.
Chronic conditions [employer]: History of internal hemorrhoids, tobacco use disorder, mixed hyperlipidemia
Impression:
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
#Left-sided pleural effusion with adjacent air bronchograms concerning for LLL CAP with parapneumonic effusion; unable to rule out empyema vs complicated parapneumonic effusion
#Abnormal CXR on 04/28/2024 with coarsened bronchovascular markings - likely due to hypoventilation
#Tobacco use disorder
#Thrombocytopenia - unknown baseline but in the setting of leukocytosis, this could be due to active infection with sepsis vs bone marrow disease/leukemia
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
#Chest pain - in setting of 21% blasts, this Sx could be explained by AML (CBC blood smear review and peripheral blood flow cytometry is pending)
#Positive urinalysis with kennedy�sensitive E. coli seen on UCX from 04/25/2024 - suspicious for UTI although patient is asymptomatic
Plan:
- Regarding the interstitial markings from CXR on 04/28/2024, this is likely due to hypoventilation and not due to any pre-existing ILD. This is based on the fact that he had a normal CXR just 3 days prior, with no evidence of reticular opacities,
honeycombing or any other signs of ILD in the bases of the lungs on CT A/P from 04/25/2024
- I do not feel this patient needs a CTD workup at this time however given it was already drawn this will be followed up
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
- His peripheral blood smear + flow cytometry is pending which will help in the diagnosis of AML. He may need bone marrow aspirate + Bx
- Leukocytosis up to 29.1 worries me, given elevated blast at 21% this is concerning for AML; negative procalcitonin makes infection less likely xiao given the left chest US findings with small pleural effusion
- Left chest ultrasound performed on 04/29/2024 which was small without significant septations or loculations � no need to perform thoracentesis or insert chest tube at this time; continue with antibiotics as below
- If pt still here at , re-check CXR tomorrow (vs chest ultrasound) to re-assess persistence versus enlargement of left-sided pleural effusion
- Continue with antibiotics with ceftriaxone + Doxy; would not stop antibiotics given his new Dx of AML with L-sided PNA; would give a minimum of 7-10 days at this time
- Follow-up blood cultures, check sputum culture (if patient can produce a decent sample)
- Maintain SpO2 >90-94% with supplemental O2 as needed
- Incentive spirometer encouraged
- prn nebulized bronchodilators and continue DuoNebs QID
- Given his risk factor for DVT/PE, check a lower extremity duplex --> this was negative. Unfortunately due to patient's elevated creatinine with suspected JULIO, hold off on CTA chest unless patient's oxygen requirements worsen or if patient's chest
pain progresses
- Continue with gentle hydration and trend sCr and UOP
- pain control
- Mucolytics with mucinex; can also use flutter valve
- Strongly encouraged nicotine cessation
- Continue nicotine patch; offered nicotine lozenges as well - he refused
- Recommend outpatient PFTs
- He qualifies for lung cancer screening via LDCT chest which can be discussed with him as an outpatient
- Replete electrolytes with K>4, Mg>2
- Maintain euglycemia with goal BG >100 and <180
- DVT ppx
Given his suspected AML blast crisis, patient is being prepared for transfer to [facility] where dedicated hematology service is available. We will continue to follow along while patient remains here at [facility]. Once
transferred then we will arrange for outpatient follow-up with our office.
Pulmonary service will continue to follow along.
Total time spent today was 35 minutes for this encounter. Time includes reviewing laboratory test/imaging results, reviewing pertinent medical records, obtaining and reviewing medical history, performing an appropriate exam, ordering medications,
tests and procedures. Time also includes documentation of this encounter, coordinating patient care and communicating with other healthcare professionals. Total time does not include separately billed tests performed on this date of service.
Data:
Left chest US 04-29-2024: A small left pleural effusion is noted, with no significant septations/loculations.
Lower Extremity Duplex US 04-29-2024: No evidence of deep venous thrombosis bilaterally.
CXR 04-28-2024: Diffuse increased interstitial opacity probably related to interstitial edema. Bilateral very small pleural effusions with adjacent atelectatic changes
CT Abd/Pelvis w/o contrast 04-25-2024:
1. Small left pleural effusion with an adjacent left lower lobe opacity that may represent atelectasis or pneumonia.
2. Cholelithiasis.
3. Colonic diverticulosis.
4. Mild splenomegaly.
5. No CT evidence for hydronephrosis or nephroureterolithiasis.
Subjective Data
-
Date of Service:
Date of Service: April 30, 2024
Chief Complaint: Pulmonary Follow Up
Subjective:
Pt seen today at bedside. and patient's 2 sisters at bedside. Pt has been having bloody sputum since last night, small amount (less than teaspoon amounts). He is on 4L/min NC. His CBC shows concerning findings with 21% blasts. He is being
prepared for TRX to [facility]. The pt appears with flat affect, has chest discomfort, mild SOB xiao with activity. I answered all the patient and his family's questions to their satisfaction.
Review of Systems
General: Other (negative unless mentioned above)
Objective Data
Data Reviewed
Vital Signs / I&O / Oxygen:
Vital Signs
Temp Pulse Resp BP Pulse Ox
98.1 F 76 16 135/68 91
04/30/24 07:35 04/30/24 08:19 04/30/24 08:19 04/30/24 07:35 04/30/24 08:19
Intake and Output
04/29/24 04/30/24 05/01/24
06:59 06:59 06:59
Intake Total 1620 / 1620
Output Total 400 / 400
Balance 1220 / 1220
SaO2 91
Nasal Cannula flow liters per 4
minute
Physical Exam
General: Respiratory Distress (negative) and Comfortable
HEENT: Normocephalic and Anicteric
Cardiovascular: S1-S2 and Peripheral Edema (negative)
Respiratory: Wheeze (negative), Rhonchi (negative), Accessory Resp Muscle Use (negative) and Other (Reduced BS at right base)
GI: Soft, Non Distended, Non Tender and Normal Bowel Sounds
Neurology: Awake, Alert and Other (Flat affect)
Skin: Warm, Dry and Jaundice (negative)
Labs/Micro/Reports
Lab Data
04/30/24 07:26
04/30/24 07:26
Microbiology
04/28/24 22:28 Blood/Venous Blood Culture - Preliminary
No Growth in 24 hours- Final report to follow
04/29/24 16:18 Urine Legionella Urinary Antigen - Final
Negative for Legionella pneumophila Serogroup 1 antigen.
A negative result does not rule out the possiblity of
Legionella infection due to other serogroups or species of
Legionella. Clinical correlation is recommended.
[2024-04-30 10:55] LABS: Absolute Neutrophils -Man Diff 9.3 10^3/uL (1.4-6.5); Band Neutrophils 6 % (0-3); Eosinophils 1 % (0-6); Lymphocytes 17 % (20-51); Monocytes 15 % (2-9); Myelocytes 10 % (-); Promyelocytes 1 % (-); Segmented Neutrophils 24 % (42-75)
[2024-04-30 11:00] LABS: Blasts 21 % (-)
[2024-04-30 11:12] VITALS: BP 129/69
--- NOTE | 2024-04-30 11:31 | CON.ONC ---
Impression
Impression
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
Anemia, thrombocytopenia, leukocytosis
Plan
Plan
Discussed with patient and the suspected diagnosis of acute leukemia. Flow cytometry pending at [facility], anticipate results later today.
Recommended transfer to [facility], which has been initiated. Dr. Ashley Delvalle is the accepting physician.
Repeat coags, LDH, uric acid, respiratory pane - pending
IVF, start allopurinol
Oxygen as needed
Patient History
History of Present Illness
This is a 63-year-old man without past medical history, who developed shortness of breath over the past week or so. He was seen in the emergency room on April 25, underwent chest x-ray which showed no acute cardiopulmonary process. CT scan of the
abdomen pelvis was done at that time to evaluate for left flank pain. It showed a small left pleural effusion with an adjacent left lower lobe opacity, that may represent atelectasis or pneumonia. There was mild splenomegaly. White blood cell
count at that time was 16.9, with slight monocytosis. He was thought to have pneumonia, discharged from in the ER with prescriptions for Zithromax and amoxicillin. He returned to the emergency room on April 28, 2024 with increasing symptoms, now
requiring 4 L of oxygen. CBC was noted for progressive leukocytosis, up to 31.2 today. Peripheral blood smear is suspicious for 21% blasts. Platelet count is 73, hemoglobin is 10.1. MCV is 101.4. Creatinine is 1.3, calcium 9.0. Ferritin is
817. LFTs are normal. B12 is borderline low at 288, folic acid was 7.4. Flow cytometry was sent to [facility], results expected later today. PT and INR from admission were normal, repeat coags and fibrinogen are pending today, also uric acid,
LDH.
Past-Medical/Surgical History
Past medical and surgical history: Left wrist surgery
Social history: he is a smoker
FH: N/C
Patient Medication
�Medication �Instructions �Recorded �Confirmed �Last Taken �Type
tramadol 50 mg tablet 50 mg PO Q8H PRN moderate pain 04/28/24 04/28/24 04/28/24 17:00 History
amoxicillin 500 mg capsule 1,000 mg PO TID Infection 04/29/24 04/28/24 04/28/24 History
azithromycin 250 mg tablet 250 mg PO DAILY Infection 04/29/24 04/28/24 04/28/24 History
(Zithromax)
Active Medications
Generic Name Dose Route Start Last Admin
Trade Name Freq PRN Reason Stop Dose Admin
Acetaminophen 650 mg 04/29/24 03:43
Acetaminophen 325 Mg Tablet PO 05/27/24 03:42
Q4HPRN PRN
if temp > 101 F
Albuterol/Ipratropium 3 ml 04/29/24 03:43
Ipratropium 0.5/Albuterol 3 Mg (3 Ml Ampul) INH
R Q4HPRN PRN
shortness of breath/wheezing
Protocol
Albuterol/Ipratropium 3 ml 04/29/24 08:00 04/30/24 08:16
Ipratropium 0.5/Albuterol 3 Mg (3 Ml Ampul) INH 3 ml
R QID PAU Administration
Protocol
Ceftriaxone Sodium 1,000 mg 04/29/24 04:00 04/29/24 21:00
Ceftriaxone 1000 Mg / 10 Ml Vial IV 1,000 mg
HS PAU Administration
Doxycycline Hyclate 100 mg 04/29/24 08:00 04/30/24 09:17
Doxycycline 100 Mg Capsule PO 100 mg
BID PAU Administration
Guaifenesin 600 mg 04/29/24 08:00 04/30/24 09:17
Guaifenesin 600 Mg Extended Release Tablet PO 05/27/24 07:59 600 mg
Q12 PAU Administration
Heparin Sodium 5,000 units 04/30/24 16:00
Heparin 5,000 Units/Ml 1 Ml Vial SC 05/28/24 15:59
Q8 PAU
Hydromorphone HCl 0.5 mg 04/29/24 16:14 04/30/24 10:47
Hydromorphone 0.5 Mg/0.5 Ml Syringe IV 05/13/24 16:13 0.5 mg
Q4HPRN PRN Administration
severe pain
Sodium Chloride 1,000 mls @ 100 mls/hr 04/29/24 11:45 04/30/24 06:06
Nss IV 1,000 mls
.Q10H PAU Administration
Nicotine 14 mg 04/29/24 08:00 04/30/24 09:16
Nicotine 14 Mg Patch TRANSDERM 05/27/24 07:59 14 mg
DAILY PAU Administration
Ondansetron HCl 4 mg 04/29/24 13:33 04/30/24 10:52
Ondansetron 4 Mg/2 Ml Vial IV 05/27/24 13:32 4 mg
Q6HPRN PRN Administration
NAUSEA/VOMITING
Oxycodone HCl 5 mg 04/29/24 03:43 04/30/24 09:21
Oxycodone 5 Mg Regular Release Tablet PO 05/13/24 03:42 5 mg
Q4HPRN PRN Administration
severe pain
Sodium Chloride 0 flush 04/28/24 23:00
Sodium Chloride 0.9% (Flush) Syringe IV 05/26/24 22:59
PER PROTOCOL PAU
Sterile Water 10 ml 04/29/24 04:00 04/29/24 21:00
Sterile Water For Injection 10 Ml Vial IV 05/27/24 03:59 10 ml
HS PAU Administration
Review of Systems
-
All Other Systems: Not reviewed unless documented
Constitutional: Reports Night Sweats and Chills; Denies Fever
EENT: Denies Sore Throat, Mouth Pain, Mouth Swelling or Bloody Nose
Respiratory: Reports Cough and Hemoptysis (very scant)
Cardiac: Reports Chest Pain and Diaphoresis
GI: Reports Anorexia; Denies Abdominal Pain, Nausea, Vomiting or Diarrhea
Musculoskeletal: Denies Joint Pain, Joint Swelling or Muscle Pain
Skin: Denies Itching, Rash or Sores
Neuro: Reports Weakness
Hematologic/Lymphatic: Reports Bruising (Chronic); Denies Bleeding or Swollen Glands
Physical Exam
-
General: Well Nourished, No Apparent Distress, Comfortable and Sweats
HEENT: Moist Mucous Membranes and Other (Poor dentition); Negative Jaundice
Cardiology: Normal Sinus Rhythm
Pulmonary: Rales
GI: Soft and Normal Bowel Sounds; Negative Distended
Musculoskeletal: No Clubbing, No Cyanosis and No Edema
Extremities: No C/C/E; Negative Phlebitic Signs
Neurology: Non Focal, No Lateralizing Symptoms and No Word Finding Difficulty
Skin: Warm and Dry; Negative Jaundice
Psych: Calm and Intact Judgement/Insight
Labs
Lab Results
WBC 31.2 10^3/uL (4.8-10.8) H 04/30/24 07:26
RBC 2.86 10^6/uL (4.70-6.10) L 04/30/24 07:26
Hgb 10.1 g/dL (13.0-18.0) L 04/30/24 07:26
Hct 29.0 % (39.0-52.0) L 04/30/24 07:26
MCV 101.4 fL (80.0-94.0) H 04/30/24 07:26
MCH 35.3 pg (27.0-31.0) H 04/30/24 07:26
MCHC 34.8 g/dL (33.0-37.0) 04/30/24 07:26
RDW 14.1 % (11.5-14.5) 04/30/24 07:26
Plt Count 73 10^3/uL (130-400) L 04/30/24 07:26
MPV 11.6 fL (7.4-10.4) H 07/10/24 07:26
Creatinine 1.3 mg/dL (0.7-1.3) 04/30/24 07:26
Vital Signs
Vital Signs
Temp Pulse Resp BP Pulse Ox
98.2 F 81 18 129/69 91
04/30/24 11:12 04/30/24 11:12 04/30/24 11:12 04/30/24 11:12 04/30/24 08:19
[2024-04-30] MEDS: ZYLOPRIM 300 MG PO (11:56)
[2024-04-30 12:18] LABS: APTT 35.2 Sec (23.4-35.0); Fibrinogen 605 MG/DL (199-459); INR 1.13; PT 14.5 Sec (11.4-14.6)
--- NOTE | 2024-04-30 12:28 | CM ---
Addendum entered by Mandie Vázquez 04/30/24 16:04:
CM received consult for Advance Directive, provided to patient and family.
Plan; transfer to [place], 4:30 ambulance transport.
Original Note:
CM received update from nurse, patient for urgent transfer to [facility]. CM sent TT to CM Director with update. CM will continue to follow for all discharge planning needs.
Plan; transfer to [place].
[2024-04-30 12:34] LABS: Uric Acid 4.1 mg/dl (3.5-8.5)
--- NOTE | 2024-04-30 12:42 | PTCARENOTE ---
Report given to [facility] transport team. Report also called to GURDEEP Armenta, of [place] floor nurse who will be accepting patient.
[2024-04-30 12:46] LABS: LDH 1124 U/L (120-246)
[2024-04-30 15:08] VITALS: BP 149/80
--- NOTE | 2024-04-30 17:11 | PTCARENOTE ---
Patient left via ambulance crew to [facility].
[2024-05-01 00:18] LABS: Complement C3 97 mg/dl (88-165)
[2024-05-01 15:58] LABS: Rheumatoid Agglutinin Less Than 10 IU (<10 IU)
[2024-05-01 19:00] LABS: Normal RBC Morphology Yes; Platelets Checked Yes
[2024-05-01 19:01] LABS: Absolute Neutrophils -Man Diff 14.2 10^3/uL (1.4-6.5); Band Neutrophils 0 % (0-3); Eosinophils 1 % (0-6); Lymphocytes 17 % (20-51); Metamyelocytes 1 % (-); Monocytes 28 % (2-9); Myelocytes 2 % (-); Segmented Neutrophils 49 % (42-75)
[2024-05-01 19:02] LABS: Atypical Lymphocytes 2 %
[2024-05-01 20:09] LABS: Total Cells Counted 100
[2024-05-02 00:24] LABS: CCP Antibody IgG/IgA 3 Units (0-19)
[2024-05-02 01:35] LABS: ANA, IgG Reflex to HEp-2 None Detected (None Detected)
[2024-05-02 11:34] LABS: Myeloperoxidase Antibody 0 AU/mL (0-19); Serine Protease-3, IgG 2 AU/mL (0-19)
== END 2024-04-30 17:06 | disposition short-term general hospital (02) | DRG 871 ==
LOC: 4 EAST ACU 23:36
PROVIDERS: Physician Assistant Medical; ADMITTING PHYSICIAN Hospitalist; ATTENDING PHYSICIAN Internal Medicine; CONSULT PHYSICIAN Internal Medicine Critical Care Medicine; CONSULT PHYSICIAN Internal Medicine Hematology & Oncology; EMERGENCY PHYSICIAN Student in an Organized Health Care Education/Training Program; FAMILY PHYSICIAN Physician Assistant Medical
DX: A41.51 Sepsis due to Escherichia coli [E. coli] (principal); I26.99 Other pulmonary embolism without acute cor pulmonale; J18.9 Pneumonia, unspecified organism; N17.9 Acute kidney failure, unspecified; C92.00 Acute myeloblastic leukemia, not having achieved remission; J90 Pleural effusion, not elsewhere classified; R65.20 Severe sepsis without septic shock; R09.02 Hypoxemia; R06.89 Other abnormalities of breathing; F17.210 Nicotine dependence, cigarettes, uncomplicated; R61 Generalized hyperhidrosis; E78.5 Hyperlipidemia, unspecified; E87.6 Hypokalemia; D69.6 Thrombocytopenia, unspecified; R82.71 Bacteriuria; B96.20 Unspecified Escherichia coli [E. coli] as the cause of diseases classified elsewhere; D75.89 Other specified diseases of blood and blood-forming organs; Z11.52 Encounter for screening for COVID-19; Z88.5 Allergy status to narcotic agent; Z82.49 Family history of ischemic heart disease and other diseases of the circulatory system; Z80.3 Family history of malignant neoplasm of breast; Z80.0 Family history of malignant neoplasm of digestive organs
CPT/HCPCS: 71046; 76604; 80048; 80053; 81003; 81015; 82607; 82728; 82746; 82805; 83516; 83540; 83550; 83605; 83615; 83735; 83880; 84145; 84300; 84484; 84550; 85025; 85027; 85384; 85610; 85730; 86038; 86160; 86200; 86430; 87040; 87449; 87633; 87811; 93005; 93306; 93970; 94640; 96365; 96375; 99285

== ENCOUNTER 2024-12-22 20:12 | Inpatient (IN) | payer OTHER, SELFPAY ==
[2024-12-22] VITALS (9 sets, daily range): BP systolic 108–156; BP diastolic 68–84; BMI 25.8
--- NOTE | 2024-12-22 12:28 | ED.GENMED ---
History of Present Illness
General
Chief Complaint: Breathing Problem
Time Seen by Provider: 12/22/24 12:07
History of Present Illness
History of Present Illness:
Patient is a 64-year-old man with history of leukemia on whole-body radiation at [facility], had chemotherapy that ended in October presenting to the emergency department hypoxia. Patient's visiting nurse evaluated patient and was concerned about hypoxia
and hypotension. Per medics when they arrived patient was hypoxic to 80%. He was normotensive. Patient denies any fevers chills chest pain shortness of breath nausea vomiting. His oncologist is at [facility]. He does feel tired however denies any
complaints.
Phy Exam
Physical Exam
Physical Exam:
GENERAL: Chronically ill-appearing
HEENT: normocephalic, extraocular movements intact, moist oral mucosa
NECK: normal inspection
RESPIRATORY: no respiratory distress, clear to auscultation bilaterally
CARDIOVASCULAR: regular rate and rhythm
ABDOMEN/: soft, non-distended, non-tender to palpation, no rebound or guarding
EXTREMITIES: non-tender, no edema/swelling PICC line in place
NEUROLOGIC: awake and alert, moves all extremities,
SKIN: warm
Scores
Heart Failure Risk
Heart Failure Risk Score: Not Applicable
Course
Orders/Labs/Results
Orders:
Orders
12/22/24 12:01
ECG [Electrocardiogram (*1)] Urgent
Reason for Study: Shortness of Breath
EKG- Treatment ONCE
12/22/24 12:27
CT Chest PE Study Urgent
Comment:
Reason For Exam: hypoxiaa
12/22/24 12:43
CR Chest - 2 Views Urgent
Comment:
Reason For Exam: PICC line placement
12/22/24 13:32
Complete Blood Count/With Diff Urgent
Comprehensive Metabolic Panel Urgent
Manual Differential Urgent
NT-proBNP Urgent
Troponin I Urgent
12/22/24 14:42
Cefepime HCl [Maxipime] 1,000 mg IV NOW STA
12/22/24 14:43
Vancomycin [Vancocin] 2,000 mg 0.9% Sodium Chloride 500 ml [Nss] 500 ml IV NOW
12/22/24 15:15
Blood Culture Q30M
ABBY Source: Blood/Venous
Specimen Description:
12/22/24 15:22
Lactic Acid Urgent
12/22/24 15:24
Blood Culture Q30M
ABBY Source: Blood/Venous
Specimen Description:
12/22/24 15:30
Sterile Water [Sterile Water For Injection] 10 ml .ROUTE .ST-MED ONE
12/22/24 15:[address] Non Medication Order As Directed
Physician Order: okay to use right arm for PIV
Abnormal Lab Results
12/22/24
13:32
WBC 39.4 H 10^3/uL
(4.8-10.8)
RBC 3.13 L 10^6/uL
(4.70-6.10)
Hgb 11.3 L g/dL
(13.0-18.0)
Hct 33.0 L %
(39.0-52.0)
MCV 105.4 H fL
(80.0-94.0)
MCH 36.1 H pg
(27.0-31.0)
RDW 16.5 H %
(11.5-14.5)
Plt Count 35 L 10^3/uL
(130-400)
MPV 10.7 H fL
(7.4-10.4)
Abs Neuts (Manual) 15.3 H 10^3/uL
(1.4-6.5)
Segmented Neutrophils 31 L %
(42-75)
Band Neutrophils 8 H %
(0-3)
Lymphocytes (Manual) 12 L %
(20-51)
Blast Cells 36 H* %
(-)
Potassium 3.4 L mmol/L
(3.5-5.1)
BUN 21 H mg/dl
(9-20)
Creatinine 2.0 H mg/dL
(0.7-1.3)
Glucose 110 H mg/dl
(70-99)
Calcium 10.7 H mg/dl
(8.4-10.2)
AST 88 H U/L
(17-59)
Alkaline Phosphatase 134 H U/L
(38-126)
12/22/24 13:32
12/22/24 13:32
Vital Signs
Initial and Last Documented VS:
Initial Vital Signs
Temp Pulse Ox
98.4 F 75
12/22/24 12:00 12/22/24 12:00
Last Documented Vital Signs
Temp Pulse Resp BP Pulse Ox
98.4 F 89 16 133/82 94
12/22/24 12:00 12/22/24 14:00 12/22/24 14:00 12/22/24 12:02 12/22/24 14:00
MDM/Problems Addressed
Differential Diagnosis Includes:
Patient 64-year-old man with history of leukemia on whole-body radiation at [facility] presenting to the emergency department with hypoxia. On arrival patient was 70% on room air and placed on 4 L nasal cannula. Exam does show chronically ill-appearing
man. His lungs are clear to auscultation bilaterally. Differential is broad but consists of PE versus pneumonia versus worsening malignancy. Will check blood work EKG and obtain CT PE study.
*Critical Care Note
Total Time (30-74mins, 75-104mins- exclusive of procedures): Not Applicable
Update Note
Update Note:
Blood work does show leukocytosis with bandemia. Will give antibiotics and obtain blood cultures. His platelets are at 35. I did discuss with on-call oncology at [facility]. They excepted patient for transfer. Recommended transfusing platelets if
less than 10 since he is not bleeding. Agreed with antibiotics. CT PE does show possible pneumonia. He has received antibiotics. Blood cultures are pending. Patient is pending transfer at this time to [facility].
ED Attending Note
-
Portions of this chart may have been created with voice recognition software.� Occasional wrong word or��sound alike� substitutions may have occurred due to the inherent limitations of voice recognition software.
Discharge Plan
Departure
Patient Disposition: Acute Care Hospital
Date of Disposition: 12/22/24
Time of Disposition: 14:50
Discharge Problem:
Hypoxia, Leukocytosis
Prescriptions:
No Action
tramadol 50 mg tablet
50 mg PO Q8H PRN (Reason: moderate pain)
amoxicillin 500 mg capsule
1,000 mg PO TID
azithromycin [Zithromax] 250 mg tablet
250 mg PO DAILY
Referrals:
UNKNOWN - PT DOES,NOT KNOW [Unknown Provider] -
Hospital Transfer
Other hospital: [facility]
I certify that the patient requires transfer: Yes
Discussed case with accepting physician: Dr Garcia
Reason for transfer: availability of service
Interventions
Interventions:
*Risk Screen - Suicide Last Done: 12/22/24 12:02
*General Assessment Last Done: 12/22/24 12:02
*Neglect/Abuse Screening Last Done: 12/22/24 12:02
ED- Cardiac Assessment Last Done: 12/22/24 12:50
ED- Pulmonary Assessment Last Done: 12/22/24 12:50
Discharge Date and Time
Print Language: BHUTANESE
[2024-12-22 13:47] LABS: Hemoglobin 11.3 g/dL (13.0-18.0); Mean Corp Hgb Conc. 34.2 g/dL (33.0-37.0); Mean Corpuscular Hgb 36.1 pg (27.0-31.0); Mean Corpuscular Volume 105.4 fL (80.0-94.0); Red Blood Cell Count 3.13 10^6/uL (4.70-6.10); Red Cell Dist. Width 16.5 % (11.5-14.5); White Blood Cell Count 39.4 10^3/uL (4.8-10.8)
[2024-12-22 13:57] LABS: ALT (SGPT) 48 U/L (0-50); AST (SGOT) 88 U/L (17-59); Albumin 3.8 g/dl (3.5-5.0); Alkaline Phosphatase 134 U/L (38-126); Blood Urea Nitrogen 21 mg/dl (9-20); Calcium 10.7 mg/dl (8.4-10.2); Carbon Dioxide 27 mmol/L (22-30); Chloride 104 mmol/L (98-107); Estimated Creatinine Clearance 37 ml/min; Glucose 110 mg/dl (70-99); Potassium 3.4 mmol/L (3.5-5.1); Sodium 136 mmol/L (135-145); Total Bilirubin 0.6 mg/dl (0.2-1.3); Total Protein 6.3 g/dl (6.3-8.2); eGFR 36.81
[2024-12-22 14:08] LABS: NT-proBNP 862 pg/ml; Troponin I 0.018 ng/ml
[2024-12-22 14:41] LABS: Absolute Neutrophils -Man Diff 15.3 10^3/uL (1.4-6.5); Band Neutrophils 8 % (0-3); Eosinophils 4 % (0-6); Lymphocytes 12 % (20-51); Mean Platelet Volume 10.7 fL (7.4-10.4); Metamyelocytes 4 % (-); Monocytes 4 % (2-9); Myelocytes 1 % (-); Platelet Count 35 10^3/uL (130-400); Segmented Neutrophils 31 % (42-75)
[2024-12-22 14:42] LABS: Acanthocytes 1+; Anisocytosis 1+; Normal RBC Morphology No; Ovalocytes 1+; Platelets Checked Yes; Polychromasia Slight; Total Cells Counted 100
[2024-12-22 14:43] LABS: Blasts 36 % (-)
[2024-12-22] MEDS: NSS 500 IV (15:46)
[2024-12-22] MEDS: MAXIPIME 1000 MG IV (15:46)
[2024-12-22] MEDS: VANCOCIN 540 MG IV (16:28)
[2024-12-22 16:59] LABS: Lactic Acid 1.2 mmol/L (0.7-2.0)
--- NOTE | 2024-12-22 17:48 | HPS.HSE ---
Family Physician
-
Family Physician: Shannan Velasquez
Chief Complaint
-
Weakness, hypoxia
History of Present Illness
64-year-old male with history of AML diagnosed in April he started chemotherapy from April to October 08, 2024 however it was stopped due to not working. He was being treated at at [facility]. During his treatment he was developing
hive-like rashes that eventually were biopsied on the left thigh per 's demand he was diagnosed with skin leukemia. He began skin electron beam therapy in October. He still has some lesions to his left thigh that are red raised small bumps and
scattered areas that he scratched. He had the skin electron beam therapy last on 12/18/2024. His states he had sepsis pneumonia, bowel obstruction during his stay October 03 to November 10. He presents to the ER today for hypoxia at home 80%
per visiting nurse he was normotensive at home .he complains of leg cramps, hip pain, knee pain, foot pain which are common reactions of the skin electron beam therapy according to his packet. He is not able to tolerate oxycodone or tramadol as he
vomits his states in the hospital however he did tolerate morphine and Dilaudid in the past. He denies fever, chills, chest pain, cough, shortness breath, palpitations, abdominal pain, nausea, vomiting, diarrhea, urinary symptoms. He was he
was due to be transferred to [facility] but there are currently no beds available. He has past medical history of AML status post chemotherapy started April 2024 ending in October 2024, leukemia to skin discovered October 2024 currently
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
Medical History
Past Medical History
Past Medical History: Reports Other
Additional Past Medical History:
AML status post chemotherapy started April 2024 ending in October 2024
leukemia to skin discovered October 2024 currently undergoing skin electron beam therapy biopsy site was left thigh
CKD 3B
chronic thrombocytopenia
chronic anemia
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
Past Surgical History: Reports Other
Additional Past Surgical History:
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
Social History
Tobacco: Former Smoker (46 years 1 pack/day stopped April 2024)
Alcohol: None
Drug: None
Personal:
Living: With Family ( and son)
Employment: Disabled
Family History
Family History: Not pertinent
Allergies / Home Medications
Allergies reflects when Allergies were last updated in [facility].
Home Medications with original date entered in [facility]
Allergy/Medication List:
Allergies
Allergy/AdvReac Type Severity Reaction Status Date / Time
tramadol Allergy Unknown Verified 12/22/24 12:07
oxycodone HCl [From Percodan] AdvReac nausea, Verified 12/22/24 12:07
vomitung
Home Medications
cetirizine 10 mg tablet (Zyrtec) 10 mg PO BID 12/22/24
doxepin 100 mg capsule 100 mg PO DAILY 12/22/24
furosemide 20 mg tablet 20 mg PO DAILYPRN PRN swelling 12/22/24
gabapentin 300 mg capsule 600 mg PO BID 12/22/24
gabapentin 300 mg capsule 900 mg PO HS 12/22/24
guaifenesin 600 mg tablet, extended release 12 hr (Mucinex) 600 mg PO BID 12/22/24
lorazepam 0.5 mg tablet 0.5 mg PO DAILYPRN PRN anxiety 12/22/24
naltrexone 1 tab PO DAILY 12/22/24
rosuvastatin 5 mg tablet 5 mg PO DAILY 12/22/24
sennosides 8.6 mg tablet (senna) 8.6 mg PO DAILYPRN PRN constipation 12/22/24
triamcinolone acetonide 0.1 % topical ointment 1 applic topical HS 12/22/24
If medication reconciliation has not been performed, why?: Unresponsive
Review of Systems
-
History Source: Patient and Family ( at bedside)
A 12 point ROS was completed and negative except as noted: Yes
Constitutional: Reports Fatigue and Other (Hypoxia at home)
EENT: Denies Sore Throat or Runny Nose
Respiratory: Reports Trouble Breathing; Denies Cough
Cardiac: Denies Chest Pain, Diaphoresis, Palpitations or Syncope
Abdomen/GI: Reports Abdominal Pain (Abdominal distention) and Constipated (3 days); Denies Nausea, Vomiting, Diarrhea, Bloody Stools or Black Stools
: Denies Frequency, Flank Pain, Incontinence, Difficulty Voiding or Urgency
Musculoskeletal: Denies Joint Pain or Edema
Skin: Reports Itching (Chronic) and Rash (Chronic macular rash scattered left thigh small red raised areas appear to look like mosquito bites other areas are small scabbed spots from scratching to legs, arms, trunk)
Neurological: Reports Weakness (Generalized); Denies Dizzy or Headache
Endocrine: Reports No Symptoms
Hematologic/Lymphatic: Reports No Symptoms
Psych: Reports Calm
Physical Exam
Vital Signs
Vital Signs
Temp Pulse Resp BP Pulse Ox
98.4 F 93 18 133/70 88
12/22/24 12:00 12/22/24 17:00 12/22/24 17:00 12/22/24 17:00 12/22/24 17:00
Physical Exam
General: Conversant and Pain; No Fever or Chills
HEENT: NormoCephalic, Anicteric, PERRLA, Blende Conjunctivae, No Ptosis and Oxygen (4 L nasal cannula)
Respiratory: Clear; No Wheezes, Rales or Rhonchi
Cardiac: S1/S2 and Regular Rhythm; No Murmur, Rub or Gallop
GI: Soft, Non Tender, Normal Bowel Sounds and Distended
Genito-urinary: Deferred by me
Musculoskeletal: No Clubbing, No Cyanosis and No Edema
Skin: Warm, Dry, Rash (Chronic macular rash (biopsied as leukemia) scattered left thigh small red raised areas appear to look like mosquito bites other areas are small scabbed spots from scratching to legs, arms, trunk) and IV/Catheter Site (PICC
line right upper arm)
Neuro: AO x 3, No Motor Deficits, No Sensory Deficits and DTR's Intact & Symmetrical; No Slurred Speech, Facial Droop, Tremors or Sedated
Psych: Calm
Laboratory Results
-
12/22/24 13:32
12/22/24 13:32
Laboratory Results
Lactic Acid 1.2 mmol/L (0.7-2.0) 12/22/24 15:26
Total Bilirubin 0.6 mg/dl (0.2-1.3) 12/22/24 13:32
AST 88 U/L (17-59) H 12/22/24 13:32
ALT 48 U/L (0-50) 12/22/24 13:32
Alkaline Phosphatase 134 U/L (38-126) H 12/22/24 13:32
Troponin I 0.018 ng/ml 12/22/24 13:32
Impression/Plan
-
Impression/plan:
Admit to telemetry
#Acute hypoxic respiratory insufficiency 2/2 possible bilateral lower lobe PNA
75% RA, 88% 4 LNC, 98.4, HR 133
WBC 39.4 with 8% bands (prior baseline 16-30 in April 2024)
-IV vancomycin, IV cefepime
-IV NSS 1 L bolus
-Incentive spirometry
-PT/OT/case management consult
CT PE study:
1.Bilateral lower lobe consolidations with air bronchograms, left greater than right and tiny left pleural effusion. Findings could represent PNEUMONIA although atelectasis alone in the right lower lobe cannot
be excluded.
2. No findings to suggest central pulmonary embolism.
3. Small pericardial effusion.
4. Findings compatible with emphysema.
CXR:
1. Right PICC line with tip the level of the cardiac right atrium. Line could be pulled back 3 cm.
2. Extremely low lung volumes with crowding of central/vascular markings.
3. Pulmonary interstitial markings at least top normal, cannot exclude mild interstitial edema or pneumonitis.
4. Tiny left pleural effusion cannot be excluded.
#Acute abdominal distention concern for possible bowel obstruction
#History bowel obstruction around October 03 to November 10 at [facility]
-Last bowel movement 3 days ago
-If no obstruction he states he responds to Senokot versus MiraLAX
# Acute hypokalemia
Potassium 3.4
KCl 40 mEq now, follow BMP
EKG NSR 88 bpm, QTc 467 MS no significant change from April 2024
#JULIO on CKD
Creatinine 2 prior baseline 1.3 on 04/30/2024
-IV NSS 1 L bolus given in ER
-Continue IV NSS 100 cc an hour
#Chronic leukemia with spread to skin causing SKin lesions to trunk, abdomen, arms and legs-is on current skin electron beam therapy last dose was , 12/18/2024
#Treated with chemotherapy until October 2024 at [facility] due to chemotherapy not working
Patient is supposed to start trial therapy possibly I discussed with to ask if patient had genetic testing done as she is not aware I explained to trials or based on types of genetic mutations
PICC line present right upper arm
WBC 39.4, PLT 35, blast cells 36%
-Continue triamcinolone topical at bedtime rash to body
#Chronic hip, leg, feet pain secondary to skin electron beam therapy with last dose on , 12/18/2024
Is unable to tolerate oxycodone or Ultram inpatient due to vomiting per
Can tolerate Dilaudid or morphine
-Will give Dilaudid as needed for pain along with Zofran
-Continue Zyrtec 10 mg twice daily
#Chronic neuropathy
Continue gabapentin 600 mg twice daily and 900 mg at bedtime
#Acute on chronic thrombocytopenia
- Plt 35 prior baseline 70�80s
-Fall precautions
#Anxiety
-Continue lorazepam 0.5 mg daily as needed
#HLD
cont Crestor 5 mg daily
#History of LEFT hand arterial occlusion and wrist treated with cauterization
-Patient cannot have any blood pressures IV sticks or anything to left hand
#Former smoker
-Approximately 46 years 1/2 pack/day stopped April 2024
#Insomnia
Continue doxepin 100 mg daily
DVT prophylaxis
SCDs as platelets are 35
Full code per patient with at bedside who is POA
[2024-12-22] MEDS: DILAUDID 0.5 MG IV (19:18)
[2024-12-22] MEDS: KCL 40 MEQ PO (19:18)
--- NOTE | 2024-12-22 20:36 | W.PN.UPDATE ---
Update Note
Progress Note Update
This note serves as an addendum to the H&P by rf engineer FARHAD Janis HAYDEN
HPI:
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 Tx with skin electron beam therapy last Rx on 12/18/2024. Hosital course ( 10/02/24 - 11/10/24) is complicated by Sepsis,
PNA, bowel obstruction seen at ER:
- desat to 80% RA at home noted by home VN.
- Reports Leg cramps, hip pain, knee pain, foot pain which are common reactions of the skin electron beam therapy.
- Not able to tolerate oxycodone or tramadol as he vomits
- he tolerate morphine and Dilaudid in the past.
ROS:
- denies fever, chills, chest pain, cough, shortness breath, palpitations, abdominal pain, nausea, vomiting, diarrhea, urinary symptoms.
PHX:
AML status post chemotherapy started April 2024 ending in October 2024
leukemia to skin discovered October 2024 currently undergoing skin electron beam therapy biopsy site was left thigh.,
CKD 3B
chronic thrombocytopenia
chronic anemia
HTN developed after chemotherapy.
CT PE study:
1.Bilateral lower lobe consolidations with air bronchograms, left greater than right and tiny left pleural effusion.
Findings could represent PNEUMONIA although atelectasis alone in the right lower lobe cannot be excluded.
2. No findings to suggest central pulmonary embolism.
3. Small pericardial effusion.
4. Findings compatible with emphysema.
CXR:
1. Right PICC line with tip the level of the cardiac right atrium. Line could be pulled back 3 cm.
2. Extremely low lung volumes with crowding of central/vascular markings.
3. Pulmonary interstitial markings at least top normal, cannot exclude mild interstitial edema or pneumonitis.
4. Tiny left pleural effusion cannot be excluded.
CT suggest b/l LLL PNA
Recent HX PNA
Acute Hypoxic RF required 4 L O2
- agree with empiric Vancomycin and CFP
- O2 supplement
ASSESSMENT & PLAN
Acute abdominal distention concern for possible bowel obstruction
HX bowel obstruction around October 03 to November 10 at [facility]
-Last BM 3 days ago
- obstruction series
JULIO:Cr 2
CKD3b; baseline 1.3 on 04/30/2024
- s/p NS 1L at ER
- c/w IV NS
AML
Acute on chronic thrombocytopenia; -Plt 35 prior baseline 70�80s
HX Chronic leukemia with skin leukemia ( trunk, abdomen, arms and legs)
- last electron beam therapy last dose was , 12/18/2024
- Fall precautions
- PICC line present right upper arm
- Pending TF to [facility]
Chronic hip, leg, feet pain
s/p kin electron beam therapy with last dose on , 12/18/2024
- unable to tolerate oxycodone or Ultram inpatient due to vomiting per
- IV Dilaudid PRN
Chronic neuropathy
- Gabapentin 600 mg twice daily and 900 mg at bedtime
Anxiety
- on lorazepam 0.5 mg daily
HLD
- cont Crestor 5 mg daily
HX LEFT hand arterial occlusion and wrist treated with cauterization
- t cannot have any blood pressures IV sticks or anything to left hand
DVT prophylaxis: SCDs due to severly low platelet
Full code
IP TLM
[2024-12-22] MEDS: NSS 1000 IV (21:02)
[2024-12-22] MEDS: DILAUDID 1 MG IV (21:17)
[2024-12-22 22:20] LABS: COVID-19 Antigen Negative (Negative)
--- NOTE | 2024-12-22 23:26 | PHA.VAN.IN ---
Assessment
- Assessment
Renal Function: Appears elevated from baseline (04/30/24 BASELINE SCR: 1.3)
Concomitant Antimicrobials: CEFEPIME
- Previous Dosing Experience
Previous Regimen: NONE
Plan
- Plan
Initial / Loading Dose: 2GM
Maintenance Regimen: DOSING BY RANDOM LEVELS
Monitoring: RANDOM VANCOMYCIN LEVEL 12/23/24 AM
Pharmacokinetics Vancomycin I
- -
Patient Age: 64
Patient Sex: Male
Vancomycin Day #: 1
Indication: Pulmonary/Respiratory
Requesting Provider: JACKELYN
Height / Weight:
Height 5 ft 8 in
Actual Weight 77 kg
Pertinent Past Medical History: AML, SKIN LEUKEMIA
- Vital Signs / Lab Results
Temp Pulse Resp BP Pulse Ox
98.4 F 101 21 134/84 90
12/22/24 12:00 12/22/24 23:00 12/22/24 23:00 12/22/24 23:00 12/22/24 23:00
Lab Results - Hematology
12/22/24
13:32
WBC 39.4 H
Band Neutrophils 8 H
Lab Results - Chemistry
12/22/24
13:32
BUN 21 H
Creatinine 2.0 H
Estimated Creat Clear 37
Albumin 3.8
12/22/24
15:26
Lactic Acid 1.2
Microbiology Results
12/22/24 22:01 Influenza Types A & B (CANDELARIO) - Final
Nasal Swab Negative for Influenza A & B, NAAT
Negative results must be combined with clinical observations
and patient history.
Nucleic Acid Amplification test (NAAT)performed on the
[employer] platform.
[2024-12-22] MEDS: ZYRTEC 10 MG PO (23:58)
[2024-12-22] MEDS: NEURONTIN 900 MG PO (23:58)
[2024-12-22] MEDS: MUCINEX 600 MG PO (23:58)
[2024-12-22] MEDS: DULCOLAX 10 MG RECTAL (23:59)
[2024-12-23] VITALS (9 sets, daily range): BP systolic 100–159; BP diastolic 67–86; O2SAT 90
[2024-12-23] MEDS: DILAUDID 1 MG IV (01:04)
[2024-12-23] MEDS: SINEQUAN 100 MG PO ×2 (01:34→21:30)
[2024-12-23] MEDS: MAXIPIME 1000 MG IV ×2 (03:37→16:16)
[2024-12-23] MEDS: STERILE WATER FOR INJECTION 10 ML IV ×2 (03:38→16:16)
[2024-12-23] MEDS: NSS 1000 IV ×2 (05:05→16:21)
[2024-12-23] MEDS: MUCINEX 600 MG PO ×2 (08:59→21:35)
[2024-12-23] MEDS: NEURONTIN 600 MG PO (08:59)
[2024-12-23] MEDS: ZYRTEC 10 MG PO ×2 (08:59→21:30)
[2024-12-23] MEDS: CRESTOR 5 MG PO (08:59)
[2024-12-23 09:20] LABS: Hematocrit 29.2 % (39.0-52.0); Hemoglobin 9.9 g/dL (13.0-18.0); Mean Corp Hgb Conc. 33.9 g/dL (33.0-37.0); Mean Corpuscular Hgb 34.9 pg (27.0-31.0); Mean Corpuscular Volume 102.8 fL (80.0-94.0); Platelet Count 28 10^3/uL (130-400); Red Blood Cell Count 2.84 10^6/uL (4.70-6.10); Red Cell Dist. Width 16.8 % (11.5-14.5); White Blood Cell Count 44.3 10^3/uL (4.8-10.8)
[2024-12-23 09:36] LABS: ALT (SGPT) 48 U/L (0-50); AST (SGOT) 95 U/L (17-59); Albumin 3.2 g/dl (3.5-5.0); Alkaline Phosphatase 147 U/L (38-126); Blood Urea Nitrogen 18 mg/dl (9-20); Calcium 10.3 mg/dl (8.4-10.2); Carbon Dioxide 25 mmol/L (22-30); Chloride 107 mmol/L (98-107); Estimated Creatinine Clearance 41 ml/min; Glucose 105 mg/dl (70-99); Potassium 3.2 mmol/L (3.5-5.1); Sodium 137 mmol/L (135-145); Total Bilirubin 0.8 mg/dl (0.2-1.3); Total Protein 5.5 g/dl (6.3-8.2); eGFR 41.77
[2024-12-23 09:37] LABS: Vancomycin Random 15.2 ug/ml
--- NOTE | 2024-12-23 09:44 | PHA.VAN.FU ---
Vancomycin Assessment / Plan
- Assessment
Renal Function: SCR Decreasing
WBC's are: Trending Up
In the past 24 hrs, patient has been: Afebrile
Concomitant Antimicrobials: cefepime
- Assessment - Therapeutic Drug Monitoring
Random Level: 15.2 - drawn ~16.5H after 2g loading dose
- Dosing Plan
Dosing by Level: Re-dose today (Vanc 1000mg)
- Monitoring Plan
Random Level: 12/24 0600
MRSA Screen: Ordered per protocol
- Follow Up
Pharmacy will continue to follow.
Vancomycin Follow UP
- -
Patient Age: 64
Patient Sex: Male
Vancomycin Day #: 2
Indication: Pulmonary/Respiratory
Requesting Provider: Bettie Hallman
Pertinent Antimicrobial Allergies:
no pertinent antibiotic allergies
Height / Weight:
Height 5 ft 8 in
Actual Weight 77 kg
Pertinent Past Medical History: CKD (baseline ~1.3), AML
- Vital Signs / Lab Results
Temp Pulse Resp BP Pulse Ox
98.3 F 103 16 107/69 92
12/23/24 03:27 12/23/24 03:27 12/23/24 03:27 12/23/24 03:27 12/23/24 03:27
Lab Results - Hematology
12/22/24 12/23/24
13:32 08:55
WBC 39.4 H 44.3 H*
Band Neutrophils 8 H
Lab Results - Chemistry
12/22/24 12/23/24
13:32 08:55
BUN 21 H 18
Creatinine 2.0 H 1.8 H
Estimated Creat Clear 37 41
Albumin 3.8 3.2 L
12/22/24
15:26
Lactic Acid 1.2
Microbiology Results
12/22/24 22:01 Influenza Types A & B (CANDELARIO) - Final
Nasal Swab Negative for Influenza A & B, NAAT
Negative results must be combined with clinical observations
and patient history.
Nucleic Acid Amplification test (NAAT)performed on the
[employer] platform.
Therapeutic Drug Monitoring
Random Vancomycin 15.2 ug/ml 12/23/24 08:55
--- NOTE | 2024-12-23 09:49 | W.PN.UPDATE ---
Update Note
Progress Note Update
Discussed with [facility] transfer [place] - patient pending bed, they hope transfer in 12h, Dr.Jordan Patel accepting physician in [facility]. Informed about suspected blast crisis
[2024-12-23 10:26] LABS: B.E. 2.3 mmol/L; HCO3 26.4 mmol/L (21-28); PCO2 38 mmHg (35-48); pH 7.45 (7.35-7.45)
[2024-12-23 10:32] LABS: PO2 57 mmHg (83-108)
[2024-12-23] MEDS: KCL 270 MEQ IV (10:37)
[2024-12-23 10:59] LABS: Magnesium 1.6 mg/dl (1.6-2.3)
[2024-12-23 11:11] LABS: Absolute Neutrophils -Man Diff 11.9 10^3/uL (1.4-6.5); Band Neutrophils 6 % (0-3); Eosinophils 2 % (0-6); Lymphocytes 8 % (20-51); Monocytes 4 % (2-9); Segmented Neutrophils 21 % (42-75)
[2024-12-23 11:12] LABS: Metamyelocytes 5 % (-); Myelocytes 4 % (-)
[2024-12-23 11:18] LABS: Blasts 50 % (-); Platelets Checked Yes
[2024-12-23 11:19] LABS: Anisocytosis 1+; Normal RBC Morphology No
[2024-12-23 11:20] LABS: Acanthocytes Occasional; Ovalocytes 1+; Total Cells Counted 100
[2024-12-23] MEDS: DUONEB 3 ML INH ×3 (11:27→19:25)
[2024-12-23 12:11] LABS: INR 1.27; PT 16.2 Sec (11.4-14.6)
[2024-12-23 12:12] LABS: APTT 41.4 Sec (23.4-35.0); Fibrinogen 423 MG/DL (199-459)
--- NOTE | 2024-12-23 12:18 | W.PN.HOSP.TC ---
Today's Communication/Plan
-
Pending transfer to [facility]
Assessment / Plan
Assessment / Plan
64yo M with PMHx of AML, CKD stage 3b, HTN brought by with acute onset of hypoxia to 60% pulse O2 at home, wabbly gait and lethargy, found signs of b/l pneumonitis - AML-induced vs bacterial pneumonia. ALos significant blast cells with
leukocytosis and anemia with thrombocytopenia concerning for blast crisis/AML flare. Accepted for the transfer to [facility] pending bed.
Patient recently discharged from [facility] on 11/10/24 after prolonged stay with pneumonia, received agressive treatment for AML and also had bowel obstrction.
A/P:
#Acute hypoxic respiratory failure 2/2 b/l pneumonitis with emphysema
Cefepime/Vanco
Bcx
Duoneb
serial chest XR
COVID-19 and Influenza PCR neg
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
#Skin Leukemia
#Thrombocytopenia
#Anemia
Accepted for [facility]
supportive care at this time
Oncology follows
CBC and transfuse as needed (if hgb<7, plt<10k, INR>1.6)
#Essential HTN
#neuropathy
#HLD
cont home meds
#Ileus
had BM in-hospital
NPO
#AST elevation
#Alk.phos elevation
US RUQ
add flagyl
#Hypomagnesemia
#Hypokalemia
replete
DVT ppx SCDs (thrombocytopenia)
Full code - discuss in details with family and patient
I have spent at least 58min reviewing chart, test results, communication with consultants, family, accepting hospital and providing direct patient care
Anticipated Discharge: 24 - 48 hours
Subjective/Interval History
-
Date of Service: December 23, 2024
Objective Data
-
Labs:
Laboratory Results
12/23/24 12/23/24 12/23/24
08:55 10:12 11:46
WBC 44.3 H*
Hgb 9.9 L
Hct 29.2 L
Plt Count 28 L*
PT 16.2 H
INR 1.27
APTT 41.4 H
HCO3 26.4
Sodium 137
Potassium 3.2 L
Chloride 107
Carbon Dioxide 25
BUN 18
Creatinine 1.8 H
Glucose 105 H
Calcium 10.3 H
Total Bilirubin 0.8
AST 95 H
ALT 48
Alkaline Phosphatase 147 H
Vital Signs:
Vital Signs
Temp Pulse Resp BP Pulse Ox
99.3 F 108 14 113/69 91
12/23/24 11:44 12/23/24 11:44 12/23/24 11:44 12/23/24 11:44 12/23/24 11:44
I&O
12/22/24 12/23/24 12/24/24
06:59 06:59 06:59
Intake Total 800 / 800
Balance 800 / 800
Review of Systems
-
History Source: Patient
Constitutional: Reports Weakness
Respiratory: Reports Trouble Breathing
Abdomen/GI: Denies Abdominal Pain
Physical Exam
-
General: Respiratory Distress
HEENT: Normocephalic
Respiratory: Wheezes
Cardiac: Regular Rhythm
GI: Soft, Nontender and Nondistended
Musculoskeletal: No Clubbing, No Cyanosis and No Edema
Neuro: Awake, Alert, AO x 3 and Other (Lethargic)
Psych: Calm
--- NOTE | 2024-12-23 13:47 | CON.ONC ---
Impression
Impression
Primary refractory AML
Plan
Plan
--As discussed with Dr. Patel have ordered lab studies to exclude DIC ---maintain platelet counts greater than 20 pending results of coagulation parameters for which a PTT mixing study has been ordered --will follow daily
Patient History
History of Present Illness
As discussed with Dr. Patel from heme-onc leukemia service at the [facility] , he is an unfortunate 64-year-old white male with a history of AML diagnosed in the fall for which he underwent 2 cycles of a azacitidine venetoclax
complicated by total body rash which is persistent and for which he recently completed electron-beam therapy for skin diagnosed leukemia cutis. Bone marrow biopsy following 2 cycles of therapy noted persistent disease. He was treated with HiDAC
complicated by inability to recover counts.
His notes progressive shortness of breath in the preceding 5 days prior to admission without fever which did not improve with supplemental home oxygen prompting ER visit and subsequent admission
Past-Medical/Surgical History
recent hospitalization for pneumonia/bowel obstruction
Patient Medication
�Medication �Instructions �Recorded �Confirmed �Last Taken �Type
cetirizine 10 mg tablet (Zyrtec) 10 mg PO BID 12/22/24 12/22/24 Unknown History
doxepin 100 mg capsule 100 mg PO DAILY 12/22/24 12/22/24 Unknown History
furosemide 20 mg tablet 20 mg PO DAILYPRN PRN swelling 12/22/24 12/22/24 Unknown History
gabapentin 300 mg capsule 600 mg PO BID 12/22/24 12/22/24 Unknown History
gabapentin 300 mg capsule 900 mg PO HS 12/22/24 12/22/24 Unknown History
guaifenesin 600 mg tablet, 600 mg PO BID 12/22/24 12/22/24 Unknown History
extended release 12 hr (Mucinex)
lorazepam 0.5 mg tablet 0.5 mg PO DAILYPRN PRN anxiety 12/22/24 12/22/24 Unknown History
naltrexone 1 tab PO DAILY 12/22/24 Unknown History
rosuvastatin 5 mg tablet 5 mg PO DAILY 12/22/24 12/22/24 Unknown History
sennosides 8.6 mg tablet (senna) 8.6 mg PO DAILYPRN PRN constipation 12/22/24 12/22/24 Unknown History
triamcinolone acetonide 0.1 % 1 applic topical HS 12/22/24 12/22/24 Unknown History
topical ointment
Active Medications
Generic Name Dose Route Start Last Admin
Trade Name Freq PRN Reason Stop Dose Admin
Albuterol/Ipratropium 3 ml 12/23/24 12:00 12/23/24 11:27
Ipratropium 0.5/Albuterol 3 Mg (3 Ml Ampul) INH 3 ml
R QID PAU Administration
Protocol
Cefepime HCl 1,000 mg 12/23/24 04:00 12/23/24 03:37
Cefepime Hcl 1,000 Mg/11.3 Ml Vial IV 1,000 mg
Q12H PAU Administration
Cetirizine HCl 10 mg 12/22/24 23:04 12/23/24 08:59
Cetirizine Hcl 10 Mg Tablet PO 01/19/25 23:03 10 mg
BID PAU Administration
Doxepin HCl 100 mg 12/22/24 23:00 12/23/24 01:34
Doxepin 50 Mg Capsule PO 01/19/25 22:59 100 mg
HS PAU Administration
Furosemide 20 mg 12/22/24 23:04
Furosemide 20 Mg Tablet PO 01/19/25 23:03
DAILYPRN PRN
swelling
Gabapentin 600 mg 12/23/24 08:00 12/23/24 08:59
Gabapentin 300 Mg Capsule PO 01/20/25 07:59 600 mg
BID@08,16 PAU Administration
Gabapentin 900 mg 12/22/24 23:04 12/22/24 23:58
Gabapentin 300 Mg Capsule PO 01/19/25 23:03 900 mg
HS PAU Administration
Guaifenesin 600 mg 12/22/24 23:04 12/23/24 08:59
Guaifenesin 600 Mg Extended Release Tablet PO 01/19/25 23:03 600 mg
BID PAU Administration
Hydromorphone HCl 1 mg 12/22/24 20:57 12/23/24 01:04
Hydromorphone 1 Mg/Ml Carpuject IV 01/05/25 20:56 1 mg
Q4HPRN PRN Administration
sever pain
Hydromorphone HCl 0.5 mg 12/22/24 23:04
Hydromorphone 0.5 Mg/0.5 Ml Syringe IV 01/05/25 23:03
Q4HPRN PRN
mod pain
Hydromorphone HCl 0.25 mg 12/22/24 23:04
Hydromorphone 0.25 Mg/0.5 Ml Syringe IV 01/05/25 23:03
Q4HPRN PRN
mild pain
Sodium Chloride 1,000 mls @ 100 mls/hr 12/22/24 19:45 12/23/24 05:05
Nss IV 1,000 mls
.Q10H PAU Administration
Vancomycin HCl 1 each/ Device 0 mls @ 0 mls/hr 12/22/24 23:04
IV
PER PROTOCOL PAU
Protocol
As Directed
Potassium Chloride 40 meq/ 270 mls @ 67.5 mls/hr 12/23/24 10:05 12/23/24 10:37
Sodium Chloride IV 12/23/24 14:04 270 mls
NOW STA Administration
Metronidazole 100 mls @ 100 mls/hr 12/23/24 14:00
Flagyl 500 Mg IV
Q8H PAU
Lorazepam 0.5 mg 12/22/24 23:04
Lorazepam 0.5 Mg Tablet PO 01/19/25 23:03
DAILYPRN PRN
anxiety
Ondansetron HCl 4 mg 12/22/24 23:04
Ondansetron 4 Mg/2 Ml Vial IV 01/19/25 23:03
Q6HPRN PRN
NAUSEA/VOMITING
Rosuvastatin Calcium 5 mg 12/23/24 08:00 12/23/24 08:59
Rosuvastatin (Crestor) 5 Mg Tablet PO 01/20/25 07:59 5 mg
DAILY PAU Administration
Sennosides 8.6 mg 12/22/24 23:04
Sennosides (Senokot) 8.6 Mg Tablet PO 01/19/25 23:03
DAILYPRN PRN
constipation
Sodium Chloride 0 flush 12/22/24 22:00
Sodium Chloride 0.9% (Flush) Syringe IV 01/19/25 21:59
PER PROTOCOL PAU
Sterile Water 10 ml 12/23/24 04:00 12/23/24 03:38
Sterile Water For Injection 10 Ml Vial IV 01/20/25 03:59 10 ml
Q12H PAU Administration
Triamcinolone Acetonide 1 applic 12/22/24 23:04 12/23/24 01:30
Triamcinolone Acetonide 0.1% (Ointment) 15 Gram Tube TOPICAL 01/19/25 23:03 Not Given
HS PAU
Review of Systems
-
History Source: Patient and Family
All Other Systems: Reviewed and Negative (Other than pruritic rash and rest dyspnea)
Physical Exam
-
General: Comfortable
HEENT: Moist Mucous Membranes
Cardiology: Normal Sinus Rhythm
Pulmonary: Clear
GI: Soft
Musculoskeletal: No Clubbing and No Cyanosis
Neurology: Non Focal
Skin: Other (Fine erythematous rash)
Psych: Calm
Labs
Lab Results
WBC 44.3 10^3/uL (4.8-10.8) H* 12/23/24 08:55
RBC 2.84 10^6/uL (4.70-6.10) L 12/23/24 08:55
Hgb 9.9 g/dL (13.0-18.0) L 12/23/24 08:55
Hct 29.2 % (39.0-52.0) L 12/23/24 08:55
MCV 102.8 fL (80.0-94.0) H 12/23/24 08:55
MCH 34.9 pg (27.0-31.0) H 12/23/24 08:55
MCHC 33.9 g/dL (33.0-37.0) 12/23/24 08:55
RDW 16.8 % (11.5-14.5) H 12/23/24 08:55
Plt Count 28 10^3/uL (130-400) L* 12/23/24 08:55
MPV Not Reportable 12/23/24 08:55
Creatinine 1.8 mg/dL (0.7-1.3) H 12/23/24 08:55
Vital Signs
Vital Signs
Temp Pulse Resp BP Pulse Ox
99.3 F 108 14 113/69 91
12/23/24 11:44 12/23/24 11:44 12/23/24 11:44 12/23/24 11:44 12/23/24 11:44
[2024-12-23 14:10] LABS: Procalcitonin 0.19 ng/ml (0.0-0.25)
[2024-12-23] MEDS: VANCOCIN 200 IV (15:23)
[2024-12-23] MEDS: FLAGYL 500 MG 100 IV ×2 (15:24→21:32)
--- NOTE | 2024-12-23 16:00 | CM ---
logistics center manager reviewed patient's chart and met with patient and spouse along with extended family at bedside, patient lives with his spouse in a 2 story home, patient is independent with adl's and ambulation, no dme, patient has home oxygen from
[employer] but returned oxygen to oxygen company. Will need to follow for discharge planning needs.
PCP: Shannan Velasquez
Pharmacy: [facility] in [place]
Plan; To follow for discharge planning needs, home oxygen.
[2024-12-23] MEDS: MAGNESIUM SULFATE 50 IV (16:19)
[2024-12-23] MEDS: NEURONTIN PO (16:20)
[2024-12-23] MEDS: NEURONTIN 900 MG PO (21:32)
[2024-12-23] MEDS: DILAUDID 0.5 MG IV (21:36)
[2024-12-24] VITALS (10 sets, daily range): BP systolic 119–140; BP diastolic 47–69; BMI 25.1
[2024-12-24] MEDS: DUONEB 3 ML INH ×3 (00:53→10:58)
--- NOTE | 2024-12-24 01:21 | W.PN.UPDATE ---
Update Note
Progress Note Update
-Around 1 am, called to see patient for increased work of breathing and lower O2 sat. Respirations 24, accessory muscle use noted, pulsox 88% on 8L midflow. Patient sleepy but easily arousable to verbal stimuli. Did received dose of Dilaudid 0.5 mg
IV at 22:30 pm.
Increased mid jefry to 10 L, ordered Duonebs x 1, Portable CXR ordered. Patient placed on non-rebreather for short period of time. After receiving Duoneb, respiratory status improved, respiration 20, 93-94% on 10L midflo.
-Notified by RN, around 2:30 am, pt w/fever 101.5, ordered Tylenol 1 g IV x 1, blood cx x 2, and am labs to be drawn early. Temperature improved after Tylenol 98.7.
-Notified by RN around 4:30, pt w/increased work of breathing, respirations 24-28, more lethargic, Pulox 90-91% on 10L mid jefry. Labs returned, WBC 68.6. Creatinine 1.9. IV fluids continued NSS 75 mls/hr. Patient transferred to IMU level of care.
[2024-12-24] MEDS: OFIRMEV 100 IV (02:58)
[2024-12-24] MEDS: STERILE WATER FOR INJECTION 10 ML IV (03:39)
[2024-12-24] MEDS: MAXIPIME 1000 MG IV (03:40)
[2024-12-24 03:48] LABS: Fibrinogen 326 MG/DL (199-459); INR 1.46
[2024-12-24 04:00] LABS: ALT (SGPT) 41 U/L (0-50); AST (SGOT) 100 U/L (17-59); Albumin 3.1 g/dl (3.5-5.0); Alkaline Phosphatase 166 U/L (38-126); Blood Urea Nitrogen 22 mg/dl (9-20); Calcium 10.5 mg/dl (8.4-10.2); Carbon Dioxide 24 mmol/L (22-30); Chloride 107 mmol/L (98-107); Estimated Creatinine Clearance 39 ml/min; Glucose 146 mg/dl (70-99); Potassium 3.2 mmol/L (3.5-5.1); Sodium 137 mmol/L (135-145); Total Protein 5.3 g/dl (6.3-8.2); eGFR 39.15
[2024-12-24 04:03] LABS: Hematocrit 26.2 % (39.0-52.0); Hemoglobin 9.1 g/dL (13.0-18.0); Mean Corp Hgb Conc. 34.7 g/dL (33.0-37.0); Mean Corpuscular Hgb 36.1 pg (27.0-31.0); Mean Platelet Volume 11.6 fL (7.4-10.4); Platelet Count 31 10^3/uL (130-400); Red Blood Cell Count 2.52 10^6/uL (4.70-6.10); Red Cell Dist. Width 17.1 % (11.5-14.5); Vancomycin Random 16.2 ug/ml; White Blood Cell Count 68.6 10^3/uL (4.8-10.8)
--- NOTE | 2024-12-24 04:21 | PTCARENOTE ---
0015 pt c/o SOB, VS 127/80-120's-24-88-92% on 8L mid flow O2, pt noted to be mouth breather placed on 100%NRB and sats 93-94% S.Esa notified and at bs. Resp tx ordered,O2 increased to 10L mid flow, O2 sats maintaining at 92%. CXR ordered. pt
noted to be very lethargic and weak, unable to lift arms or lean forward without assistance.
--- NOTE | 2024-12-24 04:28 | PTCARENOTE ---
0220 pt temp 101.2 rectal, IV tylenol given blood cx's and labs sent.
--- NOTE | 2024-12-24 04:29 | PTCARENOTE ---
0420 WBC 68.6 S Esa aware via TT.
[2024-12-24] MEDS: FLAGYL 500 MG 100 IV (05:05)
--- NOTE | 2024-12-24 06:26 | PTCARENOTE ---
Received Pt from [facility] nurse. RT at bed side, Pt placed on HighFlow 40/80 spo2 97%. Lungs sound diminished with Rhonchi. Temp 98.1. Call sen within reach.
--- NOTE | 2024-12-24 06:31 | PTCARENOTE ---
pt t/f to ICU for hi flow O2
[2024-12-24 07:31] LABS: Magnesium 2.1 mg/dl (1.6-2.3)
[2024-12-24 07:32] LABS: Band Neutrophils 2 % (0-3); Eosinophils 2 % (0-6); Lymphocytes 5 % (20-51); Metamyelocytes 1 % (-); Monocytes 7 % (2-9); Myelocytes 1 % (-); Platelets Checked Yes; Segmented Neutrophils 36 % (42-75)
[2024-12-24 07:33] LABS: Normal RBC Morphology No
[2024-12-24 07:42] LABS: Anisocytosis 1+; Macrocytosis Slight; Total Cells Counted 100
[2024-12-24 07:43] LABS: Blasts 46 % (-)
--- NOTE | 2024-12-24 07:55 | W.PN.ONC2 ---
Today's Communication / Plan
-
Updated Dr. Patel this morning.
Initiate hydroxyurea 2000 mg Now and 1000 Q8 with CBC Q8 to try and decrease WBC blast count load potentially causing leukemic infiltration and hypoxemia. Monitor PLT very closely.
Prognosis extremely guarded. Discussed the case with Dr. Patel who agrees. Patient requires transfer to [place] ICU as patient is not stable for routine floor. Will discuss with attending.
I also tried to reach out the patient's Kay to discuss goals of care as patient remains full code and there are relatively limited treatment options as patient has previously already received both Vidaza + venetoclax and Dacogen + venetoclax
and most recently HiDAC with rapid progression over the past few months.

Addendum: Discussed with patient's Kay. Discussed the poor prognosis in light of refractory leukemia cutis, suspected pulmonary infiltrates from leukemia, severe splenomegaly, thrombocytopenia making hydroxyurea usage challenging. In light
of all of these factors, she tells me his wishes were to at home and not to be on a ventilator long-term. I am going to transition patient to DNR and consult hospice for hopefully palliative care at home. Not sure the patient is stable for
discharge home but will see how he does over the next day or so. Attending physician notified.
> 1 hour time spent coordinating care, discussions with attending and Myke, , documentation etc.
Impression
Impression
Primary refractory AML
Respiratory failure
Severe splenomegaly
Leukemia cutis
Plan
Plan
Patient remains full code but is clinically deteriorating currently on IMU level of care because of respiratory failure that was progressive overnight.
Awaiting transfer to [facility] where his primary hematologic care is provided.
Dr. Patel is aware. She is his primary oncologist.
Testing for DIC was unremarkable. Elevated fibrinogen makes DIC less likely.
Chest x-ray not particularly remarkable. Bilateral infiltrates could be related to leukostasis from granulocytic blasts and respiratory failure could potentially be related to pulmonary leukemic infiltration.
As patient's condition is deteriorating, will start hydroxyurea in case the hyperleukocytosis from blasts are causing his respiratory failure
Subjective/Objective
Chief Complaint
ACS heme/on progress note
Subjective
Patient transferred to IMU overnight because of increased work of breathing progressive between 1 AM and 4:30 AM. (Currently boarding in ICU because of IMU bed deficiency). See update note by gen.
Remains very weak. Abdominal distended. Currently on high flow O2 80%.
Vital Signs:
Vital Signs
Temp Pulse Resp BP Pulse Ox
98.8 F 102 18 122/63 94
12/24/24 07:45 12/24/24 07:32 12/24/24 07:32 12/24/24 06:30 12/24/24 07:32
Lab Results:
Laboratory Data
WBC 68.6 10^3/uL (4.8-10.8) H* 12/24/24 03:22
Hgb 9.1 g/dL (13.0-18.0) L 12/24/24 03:22
Plt Count 31 10^3/uL (130-400) L 12/24/24 03:22
PT 18.0 Sec (11.4-14.6) H 12/24/24 03:22
INR 1.46 12/24/24 03:22
APTT Cancelled 12/23/24 13:45
eGFR 39.15 12/24/24 03:22
Laboratory Tests
12/24/24
03:22
WBC 68.6 H*
Hgb 9.1 L
Hct 26.2 L
MCV 104.0 H
Plt Count 31 L
Blast Cells 46 H*
Fibrinogen 326
Creatinine 1.9 H
Physical Exam
Lethargic and arousable but sedated. Seems encephalopathic.
HEENT: No Jaundice
Cardiology: S1 and S2
Pulmonary: Clear
GI: Soft, Distended and Spleenomegaly (massive splenomegaly)
Extremities: No C/C/E
[2024-12-24] MEDS: CRESTOR 5 MG PO (09:55)
[2024-12-24] MEDS: ZYRTEC 10 MG PO (09:56)
[2024-12-24] MEDS: MUCINEX 600 MG PO (09:56)
[2024-12-24] MEDS: POTASSIUM PHOSPHATE 259.0909 MEQ IV (09:56)
[2024-12-24] MEDS: NEURONTIN PO (10:10)
--- NOTE | 2024-12-24 10:50 | PTOTSP ---
Reviewed chart and noted pt was transferred to IMU level of care overnight and PT/OT orders were not continued upon transfer. Will need updated orders for therapy if stable to continue to participate.
--- NOTE | 2024-12-24 11:13 | HOSPNOTE ---
Spoke with family and spouse and they made the difficult decision to place patient on hospice services. Patient will need to remain here inpatient hospice. Attending aware of plan, admissions was called and new hospice chart will be started.
--- NOTE | 2024-12-24 11:16 | PTCARENOTE ---
pt drowsy and forgetful , he is aware he is in hospital but unaware of previous events overnight , NST on monitor , he tachypneic and orthopia ,hes currently on HFNC with sats of 92% , labs noted, oncologist spoke to patints regarding condition
and options , pt is now written for a DNR and will persue hospice , Dr Casillas notified of recent changes
--- NOTE | 2024-12-24 12:04 | W.PN.HOSP.TC ---
Today's Communication/Plan
-
DC to inpatient hospcie
Assessment / Plan
Assessment / Plan
64yo M with PMHx of AML, CKD stage 3b, HTN brought by with acute onset of hypoxia to 60% pulse O2 at home, wabbly gait and lethargy, found signs of b/l pneumonitis - AML-induced vs bacterial pneumonia. ALos significant blast cells with
leukocytosis and anemia with thrombocytopenia concerning for blast crisis/AML flare. Accepted for the transfer to [facility] pending bed. After further assessment and communication with Oncology - family opted for comfort care due to rapidly
progressive AMS and patient being poor candidate for repeated treatment. Family agreeable to hospice, then verbalize understanding that all active treatment and tests will be avoided, no blood test will be done and patient will be provided
symptomatic treatment for dyspnea, pain, anxiety, constipation and urinary retention. they understand that HFNC will be switchd to mid-flow with tis approach.
Patient recently discharged from [facility] on 11/10/24 after prolonged stay with pneumonia, received aggressive treatment for AML and also had bowel obstruction.
A/P:
#Acute hypoxic respiratory failure 2/2 b/l pneumonitis with emphysema
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
#Skin Leukemia
#Thrombocytopenia
#Anemia
#Essential HTN
#neuropathy
#HLD
#Ileus
#AST elevation
#Alk.phos elevation
#Hypomagnesemia
#Hypokalemia
COmfort care, accepted to inpatient hospice
I have spent at least 58min reviewing chart, test results, communication with consultants, family, accepting hospital and providing direct patient care
Anticipated Discharge: Today
Subjective/Interval History
-
Date of Service: December 24, 2024
Objective Data
-
Labs:
Laboratory Results
12/24/24
03:22
WBC 68.6 H*
Hgb 9.1 L
Hct 26.2 L
Plt Count 31 L
PT 18.0 H
INR 1.46
Sodium 137
Potassium 3.2 L
Chloride 107
Carbon Dioxide 24
BUN 22 H
Creatinine 1.9 H
Glucose 146 H
Calcium 10.5 H
Total Bilirubin 1.0
AST 100 H
ALT 41
Alkaline Phosphatase 166 H
Vital Signs:
Vital Signs
Temp Pulse Resp BP Pulse Ox
99 F 111 24 138/69 92
12/24/24 11:04 12/24/24 11:00 12/24/24 11:00 12/24/24 11:00 12/24/24 11:00
I&O
12/23/24 12/24/24 12/25/24
06:59 06:59 06:59
Intake Total 1625 / 1625
Output Total 1100 / 1100 200 / 200
Balance 525 / 525 -200 / -200
Review of Systems
-
History Source: Patient
Respiratory: Reports Trouble Breathing
Abdomen/GI: Reports Abdominal Pain
Physical Exam
-
General: Respiratory Distress
HEENT: Atraumatic and Moist Mucous Membranes
Respiratory: Clear to Auscultation
Cardiac: Regular Rhythm
GI: Tender and Distended
Musculoskeletal: No Clubbing, No Cyanosis and No Edema
Neuro: Other (lethargic but arousable)
Psych: Calm
--- NOTE | 2024-12-24 12:11 | W.DCSUMMARY ---
Discharge Summary
Discharge Data
Date of Admission: 12/22/24
Date of Discharge: 12/24/24
-
Pending Results: No
Hospital Course
64yo M with PMHx of AML, CKD stage 3b, HTN brought by with acute onset of hypoxia to 60% pulse O2 at home, wabbly gait and lethargy, found signs of b/l pneumonitis - AML-induced vs bacterial pneumonia. ALos significant blast cells with
leukocytosis and anemia with thrombocytopenia concerning for blast crisis/AML flare. Accepted for the transfer to [facility] pending bed. After further assessment and communication with Oncology - family opted for comfort care due to rapidly
progressive AMS and patient being poor candidate for repeated treatment. Family agreeable to hospice, then verbalize understanding that all active treatment and tests will be avoided, no blood test will be done and patient will be provided
symptomatic treatment for dyspnea, pain, anxiety, constipation and urinary retention. they understand that HFNC will be switchd to mid-flow with tis approach.
Patient recently discharged from [facility] on 11/10/24 after prolonged stay with pneumonia, received aggressive treatment for AML and also had bowel obstruction. Accepted to inpatient hospice
I have spent at least 58min reviewing chart, test results, communication with consultants, family, accepting hospital and providing direct patient care
Patient was managed for:
#Acute hypoxic respiratory failure 2/2 b/l pneumonitis with emphysema
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
#Skin Leukemia
#Thrombocytopenia
#Anemia
#Essential HTN
#neuropathy
#HLD
#Ileus
#AST elevation
#Alk.phos elevation
#Hypomagnesemia
#Hypokalemia
Discharge Plan
-
Patient Disposition: Hospice - Inpatient
Discharge Diagnosis/Procedures: AML
Diet: Regular
Referrals:
Shannan Velasquez PA-C [Family Provider] -
Prescriptions:
New
glycopyrrolate 0.2 mg/mL Solution
0.2 mg IV Q4HPRN PRN (Reason: excessive secretions) Qty: 0 0RF
morphine in 0.9 % sodium chlor 1 mg/mL Solution
100 mg IV PER PROTOCOL Qty: 0 0RF
lorazepam [Ativan] 2 mg/mL Solution
0.5 mg IV Q2HPRN PRN (Reason: anxiety) Qty: 0 0RF
bisacodyl 10 mg Suppository
10 mg [place] DAILYPRN PRN (Reason: if no BM for 3 days) Qty: 0 0RF
morphine 2 mg/mL Syringe
0 mg IV [id number] PRN (Reason: moderate-severe pain / dyspnea) Qty: 0 0RF
morphine 2 mg/mL Syringe
0.5 mg IV Q1HPRN PRN (Reason: moderate-severe pain / dyspnea) Qty: 0 0RF
ondansetron HCl (PF) 4 mg/2 mL Solution
4 mg IV Q6HPRN PRN (Reason: NAUSEA/VOMITING) Qty: 0 0RF
Discontinued
cetirizine [Zyrtec] 10 mg Tablet
10 mg PO BID
doxepin 100 mg Capsule
100 mg PO DAILY
triamcinolone acetonide 0.1 % Ointment
1 applic TOPICAL HS
gabapentin 300 mg Capsule
600 mg PO BID
gabapentin 300 mg Capsule
900 mg PO HS
furosemide 20 mg Tablet
20 mg PO DAILYPRN PRN (Reason: swelling)
rosuvastatin 5 mg Tablet
5 mg PO DAILY
guaifenesin [Mucinex] 600 mg Tablet Extended Release 12hr
600 mg PO BID
sennosides [senna] 8.6 mg Tablet
8.6 mg PO DAILYPRN PRN (Reason: constipation)
lorazepam 0.5 mg Tablet
0.5 mg PO DAILYPRN PRN (Reason: anxiety)
naltrexone
1 tab PO DAILY
Patient Comments:
12/22/24: No records to confirm dosage, does not have dosage written on personal medication list and did not bring bottles.
Discharge Orders:
Discharge Patient (As Directed); Ordered 12/24/24
Ordered By: Davian Barnhart
Discharge Date and Time
Print Language: ARABIC
--- NOTE | 2024-12-24 12:20 | CM ---
CM following re: discharge planning.
Reviewed pt's chart, met with pt and family at bedside.
Hospice consult noted. Pt referred to preferred hospice.
A referral to hospice made. Pt is accepted for inpatient hospice with hospice GIP.
D/C plan: Inpatient hospice with hospice.
CM is available for emotional support.
== END 2024-12-24 12:16 | disposition hospice, inpatient (51) | DRG 193 ==
LOC: ICU 20:12
PROVIDERS: Clinical Nurse Specialist Family Health; ADMITTING PHYSICIAN Internal Medicine; ATTENDING PHYSICIAN Internal Medicine; CONSULT PHYSICIAN Internal Medicine Hematology & Oncology; EMERGENCY PHYSICIAN Student in an Organized Health Care Education/Training Program; FAMILY PHYSICIAN Physician Assistant Medical
DX: J18.9 Pneumonia, unspecified organism (principal); J96.01 Acute respiratory failure with hypoxia; C92.00 Acute myeloblastic leukemia, not having achieved remission; I31.39 Other pericardial effusion (noninflammatory); K56.7 Ileus, unspecified; N17.9 Acute kidney failure, unspecified; J43.9 Emphysema, unspecified; I12.9 Hypertensive chronic kidney disease with stage 1 through stage 4 chronic kidney disease, or unspecified chronic kidney disease; N18.32 Chronic kidney disease, stage 3b; D64.9 Anemia, unspecified; D69.6 Thrombocytopenia, unspecified; E78.5 Hyperlipidemia, unspecified; G62.9 Polyneuropathy, unspecified; E83.42 Hypomagnesemia; E87.6 Hypokalemia
CPT/HCPCS: 36600; 71045; 71046; 71275; 74018; 76700; 80053; 80202; 82805; 83605; 83735; 83880; 84100; 84145; 84484; 85025; 85384; 85610; 85730; 87040; 87502; 87811; 93005; 94640; 96365; 96366; 96375; 97162; 97166; 99285; 99406; Q9967

== ENCOUNTER 2024-12-24 12:25 | Inpatient (IN) | payer OTHER, SELFPAY ==
--- NOTE | 2024-12-24 12:34 | HPS.HSE ---
Family Physician
-
Family Physician: NO INTERVIEW UNKNOWN
Chief Complaint
-
hospice
History of Present Illness
64yo M with PMHx of AML, CKD stage 3b, HTN brought by with acute onset of hypoxia to 60% pulse O2 at home, wabbly gait and lethargy, found signs of b/l pneumonitis - AML-induced vs bacterial pneumonia. ALos significant blast cells with
leukocytosis and anemia with thrombocytopenia concerning for blast crisis/AML flare. Accepted for the transfer to [facility] pending bed. After further assessment and communication with Oncology - family opted for comfort care due to rapidly
progressive AMS and patient being poor candidate for repeated treatment. Family agreeable to hospice, then verbalize understanding that all active treatment and tests will be avoided, no blood test will be done and patient will be provided
symptomatic treatment for dyspnea, pain, anxiety, constipation and urinary retention. they understand that HFNC will be switchd to mid-flow with tis approach.
Patient recently discharged from [facility] on 11/10/24 after prolonged stay with pneumonia, received aggressive treatment for AML and also had bowel obstruction. Accepted to inpatient hospice
Medical History
Past Medical History
Past Medical History: Reports Other
Additional Past Medical History:
see HPI
Past Surgical History: Reports None
Additional Past Surgical History:
See HPI
Social History
Unable to obtain full social history at this time due to: Acuity
Family History
Family History: Not pertinent
Allergies / Home Medications
Allergies reflects when Allergies were last updated in [employer].
Home Medications with original date entered in [employer]
Allergy/Medication List:
Allergies
Allergy/AdvReac Type Severity Reaction Status Date / Time
oxycodone HCl [From Percodan] Allergy nausea, Verified 12/22/24 21:04
vomitung
tramadol Allergy Unknown Verified 12/22/24 12:07
Home Medications
bisacodyl 10 mg rectal suppository 10 mg AK DAILYPRN PRN if no BM for 3 days #0 ea 12/24/24
glycopyrrolate 0.2 mg/mL injection solution 0.2 mg IV Q4HPRN PRN excessive secretions #0 mL 12/24/24
lorazepam 2 mg/mL injection solution (Ativan) 0.5 mg (0.25 mL) IV Q2HPRN PRN anxiety #0 mL 12/24/24
morphine 1 mg/mL in 0.9 % sodium chloride intravenous 100 mg (100 mL) IV PER PROTOCOL #0 mL 12/24/24
morphine 2 mg/mL injection syringe 0 mg (0 mL) IV [id number] PRN moderate-severe pain / dyspnea #0 mL 12/24/24
morphine 2 mg/mL injection syringe 0.5 mg (0.25 mL) IV Q1HPRN PRN moderate-severe pain / dyspnea #0 mL 12/24/24
ondansetron HCl (PF) 4 mg/2 mL injection solution 4 mg (2 mL) IV Q6HPRN PRN NAUSEA/VOMITING #0 mL 12/24/24
Review of Systems
-
Unable to obtain full review of systems at this time due to: Acuity
History Source: Family
Abdomen/GI: Reports Abdominal Pain
Physical Exam
Physical Exam
General: Respiratory Distress, Pain and Fever
HEENT: NormoCephalic, Anicteric and Moist mucous membranes
Respiratory: Clear; No Wheezes, Rales or Rhonchi
Cardiac: S1/S2, Regular Rhythm and Tachycardia; No Murmur
GI: Tender and Distended; No Soft
Genito-urinary: No costovertebral tender
Musculoskeletal: No Clubbing, No Cyanosis and No Edema
Skin: Warm; No Jaundice or Ulcers
Neuro: Awake, Alert, Oriented and Other (lethargic)
Psych: Calm
Impression/Plan
-
A/P
#Acute hypoxic respiratory failure 2/2 b/l pneumonitis with emphysema
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
#Skin Leukemia
#Thrombocytopenia
#Anemia
#Essential HTN
#neuropathy
#HLD
#Ileus
#AST elevation
#Alk.phos elevation
#Hypomagnesemia
#Hypokalemia
Hospice care
I have spent at least 48min reviewing chart, test results, communication with consultants, family, accepting hospital and providing direct patient care
[2024-12-24] MEDS: ATIVAN 1 MG IV ×4 (12:39→22:31)
[2024-12-24] MEDS: MORPHINE SULFATE 1 MG IV ×2 (12:41→13:42)
[2024-12-24 12:48] VITALS: BMI 25.2
--- NOTE | 2024-12-24 13:01 | PTCARENOTE ---
pt now on comfort measures , hospice nurse spoke to patients and decision for impatient hospice , meditated as needed , pastoral care consulted , pt family in room , emotional support given
[2024-12-24] MEDS: MORPHINE 100 IV (14:38)
--- NOTE | 2024-12-24 14:46 | PTCARENOTE ---
pt escalating with discomfort , unable to keep patient comfortable with previous ordered , pt trying to get oob and disoriented , restless , lorazepam IV given , family wants patient more comfortable , litigator notified , pt is now on morphine gtt
at step 2 , pt is now asleep
--- NOTE | 2024-12-24 15:40 | HOSPNOTE ---
Patient has been admitted inpatient hospice for the management of pain, dyspnea and anxiety that could not be managed in the outpatient setting. Patient is presently on a morphine drip at wtep 2, 2 mg/hr and is getting IVP PRN Ativan. Patient also
requires frequent nursing assessments. Attending in agreement. Patient will be seen by hospice daily.
[2024-12-24] MEDS: NSS (PRESERVATIVE FREE) 0.5 ML IV ×2 (17:03→22:32)
[2024-12-24 17:36] VITALS: BP 114/62
--- NOTE | 2024-12-24 17:57 | PTCARENOTE ---
pt sent to [id number] , family at bedside , report given to receiving RN
[2024-12-24] MEDS: MORPHINE SULFATE 2 MG IV ×4 (18:01→20:54)
[2024-12-24] MEDS: TYLENOL/FEVERALL 650 MG RECTAL (18:08)
[2024-12-24] MEDS: MORPHINE SULFATE 4 MG IV ×2 (21:56→22:44)
[2024-12-24] MEDS: ROBINUL 0.2 MG IV (22:31)
--- NOTE | 2024-12-24 23:46 | PTCARENOTE ---
Pt's called RN into room. No spontaneous breath sounds or heart tones auscultated. [employer] covering made aware to pronounce. Room full of family at bedside. Morphine gtt stopped at this time and oxygen removed.
--- NOTE | 2024-12-25 | PTCARENOTE ---
hip hop artist notified
--- NOTE | 2024-12-25 00:15 | W.PN.DEATH ---
Pronouncement of
-
Called to see patient to pronounce.
No spontaneous heart tones or respirations noted.
Patient not responsive to verbal stimuli.
Patient is pronounced .
Time of : 23:55
Date of : 12/24/24
Cause of : acute hypoxic resp failure d/t bilateral pneumonitis d/t AML
Family Notified: Yes (multiple family at bedside)
--- NOTE | 2024-12-25 01:49 | PTCARENOTE ---
Fan catheter and R PICC line removed. Postmortem care completed. Family took personal belongings.
--- NOTE | 2024-12-25 06:56 | W.DCSUMMARY ---
Addendum entered and electronically signed by Davian Barnhart MD 12/25/24 15:58:
discharge date 12/24/24
Original Note:
Discharge Summary
Discharge Data
Date of Admission: 12/24/24
Date of Discharge: 12/25/24
-
Pending Results: No
Hospital Course
64yo M with PMHx of AML, CKD stage 3b, HTN brought by with acute onset of hypoxia to 60% pulse O2 at home, wabbly gait and lethargy, found signs of b/l pneumonitis - AML-induced vs bacterial pneumonia. ALos significant blast cells with
leukocytosis and anemia with thrombocytopenia concerning for blast crisis/AML flare. Accepted for the transfer to [facility] pending bed. After further assessment and communication with Oncology - family opted for comfort care due to rapidly
progressive AMS and patient being poor candidate for repeated treatment. Family agreeable to hospice, then verbalize understanding that all active treatment and tests will be avoided, no blood test will be done and patient will be provided
symptomatic treatment for dyspnea, pain, anxiety, constipation and urinary retention. they understand that HFNC will be switchd to mid-flow with tis approach.
Patient recently discharged from [facility] on 11/10/24 after prolonged stay with pneumonia, received aggressive treatment for AML and also had bowel obstruction. Accepted to inpatient hospice. Patient at 23:55 on 12/24/24
Patient was managed for:
#Acute hypoxic respiratory failure 2/2 b/l pneumonitis with emphysema
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
#Skin Leukemia
#Thrombocytopenia
#Anemia
#Essential HTN
#neuropathy
#HLD
#Ileus
#AST elevation
#Alk.phos elevation
#Hypomagnesemia
#Hypokalemia
Hospice care
I have spent at least 28min reviewing chart, test results, communication with consultants, family, accepting hospital and providing direct patient care
Discharge Plan
-
Patient Disposition:
Date/Time
Date/Time: 12/24/24 23:55
Discharge Date and Time
Discharge Date/Time: 12/25/24 01:53
Print Language: VIETNAMESE
== END 2024-12-24 23:55 | disposition expired | DRG 951 ==
LOC: 2 NORTH 12:25
PROVIDERS: ADMITTING PHYSICIAN Internal Medicine
DX: Z51.5 Encounter for palliative care (principal); J18.9 Pneumonia, unspecified organism; J96.01 Acute respiratory failure with hypoxia; C92.00 Acute myeloblastic leukemia, not having achieved remission; K56.7 Ileus, unspecified; N18.32 Chronic kidney disease, stage 3b; I12.9 Hypertensive chronic kidney disease with stage 1 through stage 4 chronic kidney disease, or unspecified chronic kidney disease; R41.82 Altered mental status, unspecified; D69.6 Thrombocytopenia, unspecified; J43.9 Emphysema, unspecified; G62.9 Polyneuropathy, unspecified; E78.5 Hyperlipidemia, unspecified; E87.6 Hypokalemia; E83.42 Hypomagnesemia; R74.01 Elevation of levels of liver transaminase levels; Z88.5 Allergy status to narcotic agent